=== PATIENT | male | born 1945 | race Caucasian/White ===

== ENCOUNTER 2019-12-13 11:02 | Inpatient (IN) | payer OTHER ==
[~2019-12-13] VITALS: Ht 180.3 cm; Wt 78.9 kg
[2019-12-13 11:03] VITALS: BP 124/85
--- NOTE | 2019-12-13 12:45 | NUR ---
ROX[facility] [phone] CELL [phone] HOME
[2019-12-13 13:26] LABS: ABSOLUTE NEUTROPHILS 4.4 thou/uL (1.4-8.2); HEMOGLOBIN 14.4 gm/dL (14.0-18.0); LYMPHOCYTES 22.6 % (24.0-44.0); MCH 30.9 pg (26.0-34.0); MCHC 33.5 g/dL (28.0-37.0); MCV 92.3 fL (80.0-100.0); MONOCYTES 5.9 % (1.0-8.0); PLATELET COUNT 257 thou/uL (150-400); POLYS 70.5 % (36.0-66.0); RBC 4.66 mil/uL (4.50-6.00); RDW 14.4 % (10.5-14.5); WBC 6.3 thou/uL (4.0-11.0)
[2019-12-13 13:39] LABS: ANION GAP 8 mmol/L (7-16); BUN 14 mg/dL (7-18); CALCIUM 8.2 mg/dL (8.5-10.1); CHLORIDE 99 mmol/L (98-107); CO2 28 mmol/L (21-32); CREATININE 0.9 mg/dL (0.7-1.3); GLUCOSE 100 mg/dL (74-106); POTASSIUM 3.4 mmol/L (3.5-5.1); SODIUM 135 mmol/L (136-145)
[2019-12-13 13:49] LABS: SGOT 54 U/L (15-37); SGPT 53 U/L (30-65); TOTAL BILIRUBIN 0.5 mg/dL (<0.1-1.0); TOTAL PROTEIN 7.2 g/dL (6.4-8.2); TROPONIN-I <0.06 ng/mL (<0.06)
[2019-12-13] MEDS ORDERED: NORVASC 2.5 MG2.5 M1 PO (14:03)
[2019-12-13 16:06] LABS: URINE BILIRUBIN NEGATIVE (Negative); URINE BLOOD NEGATIVE (Negative); URINE CLARITY CLEAR; URINE COLOR YELLOW; URINE GLUCOSE-RANDOM* NEGATIVE (Negative); URINE KETONES 1+ (Negative); URINE LEUKOCYTES-REFLEX NEGATIVE (Negative); URINE NITRITE-REFLEX NEGATIVE (Negative); URINE PROTEIN (DIPSTICK) 1+ (Negative); URINE SPECIFIC GRAVITY 1.025 (1.005-1.035)
[2019-12-13 16:12] VITALS: BP 123/70
[2019-12-13 16:39] VITALS: BP 126/69
[2019-12-13 16:46] LABS: BACTERIA-REFLEX 1-9 Few /HPF (None Seen); CASTS None Seen /LPF (None Seen); CRYSTALS None Seen /LPF (None Seen); SQUAMOUS None Seen /LPF (0-3); URINE RBC None Seen /HPF (0-2); URINE WBC-REFLEX 0-5 Rare /HPF (0-5)
[2019-12-13 18:00] VITALS: BP 148/87
--- NOTE | 2019-12-13 19:39 | NUR ---
PT ADMITTED FROM ER FOR WEAKNESS, FEVER ,AND LOSS OF APPETITE, PT IS A&OX3, PT IS CONTINUING NS @ 125ML/HR, PT HAS TYELON 650MG PO FOR FEVER 101F (AX) AT 1830PM, PT IS ON O2 2L/MIN/NC, PT DEIES SOB AND PAIN AT THIS TIME, PT IS ON ISOLATION FOR R/O COVID. RN HAS REPORTED TO NEXT SHIFT TO KEEP EYE ON PT.
[2019-12-13 19:55] VITALS: BP 125/72
[2019-12-13 23:59] VITALS: BP 150/86
[2019-12-14] VITALS (9 sets, daily range): BP systolic 142–161; BP diastolic 78–90
--- NOTE | 2019-12-14 04:49 | NUR ---
ASSUMED CARE OF PT AT 1900HRS. PT IS AOX4 AND LETS NEEDS BE KNOWN. FALL PRECAUTION IN PLACE. PT IS A STANDBY ASSIST WITH A STEADY GAIT. PT HAD 2X LOOSE BM THIS SHIFT. 2L O2 VIA NC CONTINUED. PT EXPERIENCES SOA WITH ACTIVITY. PT TRANSFERRED TO NEGATIVE PRESSURE ROOM AND ISOLATION CONTINUED PENDING COVID-19 TEST RESULTS. PT REPORTED GENERAL ACHE. PT DID NOT SLEEP WELL THIS SHIFT. PT HAD A TEMP BUT OTHER VSS. WILL CONTINUE TO MONITOR.
[2019-12-14 05:04] LABS: ABSOLUTE NEUTROPHILS 5.5 thou/uL (1.4-8.2); BASOPHILS 0.7 % (0.0-2.0); EOSINOPHILS 0.1 % (0.0-3.0); HEMOGLOBIN 14.1 gm/dL (14.0-18.0); LYMPHOCYTES 26.3 % (24.0-44.0); MCH 31.2 pg (26.0-34.0); MCHC 32.9 g/dL (28.0-37.0); MCV 94.7 fL (80.0-100.0); PLATELET COUNT 282 thou/uL (150-400); POLYS 67.9 % (36.0-66.0); RBC 4.54 mil/uL (4.50-6.00); RDW 14.5 % (10.5-14.5)
[2019-12-14 05:12] LABS: CALCIUM 7.6 mg/dL (8.5-10.1); CREATININE 0.9 mg/dL (0.7-1.3); MAGNESIUM 2.2 mg/dL (1.8-2.4)
--- NOTE | 2019-12-14 14:39 | NUR ---
assessment: CM REVIEWED CHART AND SPOKE WITH PATIENT. PT IS ALERT AND ORIENTED X4. PT WAS ADMITTED WITH WEAKNESS/FEVER. PT IS BEING TESTED FOR DAVIS VIRUS AND RESULTS ARE STILL PENDING AND PT IS IN ISOLATION. PT REPORTS HE HAS NOT TRAVELED ANYWHERE RECENTLY. PT REPORTS HE LIVES IN A HOUSE WITH HIS . PT REPORTS ABOUT 2 STEPS WITH NO HANDRAILS TO ENTER THE HOME AND ABOUT 10 STEPS WITH HANDRAILS TO HIS BEDROOM. PT REPORTS BEING FULLY INDEPENDENT WITH ADLS AND AMBULATION. PT REPORTS HAVING A GRAB BAR IN THE SHOWER. PT STATES HE HAS HAD OUTPT THERAPY IN THE PAST FOR HIS SHOULDER BUT UNSURE WHERE. PT DENIES HAVING OXYGEN AT HOME AND IS CURRENTLY ON 2-4L. CM WILL CONTINUE TO FOLLOW TO ASSIST NEEDED.
[2019-12-14 19:03] LABS: BE(vivo) -2.4 mmol/L (-2 to +3); HCO3 21.2 mmol/L (22.0-26.0); PCO2 33.3 mmHg (35.0-45.0); PO2 59.6 mmHg (80.0-100.0); pH 7.421 (7.360-7.450); sO2 91.6 % (92.0-98.0)
--- NOTE | 2019-12-14 19:50 | NUR ---
ASSUMMED PT CARE AT APPROXIMATELY 0700. PT A&O X4. ASSESSMENT CHARTED. FALL PRECAUTIONS IN PLACE. PT DENIES HAVING CHEST PAIN. PT DOES HAVE SOB. PT IS TACHYPNIC. PT INCREASINGLY NEEDING MORE O2 TO KEEP O2 AT LEAST 90%. PT STARTED DAY ON 2L NC. PT ENDING SHIFT ON 6L NC. INFORMED DR. DELAROSA OF PT NEEDING INCREASINGLY MORE O2. DR. DELAROSA ORDERED TRANSFER TO ICU, ABG, AND CHEST XRAY. ORDERS IMPLEMENTED. UPDATED DR. DELAROSA ON ABG AND CHEST XRAY RESULTS. DR. DELAROSA STATED TO INFORM ICU TO PREPARE FOR INTUBATION ONCE THERE AND TO PLACE PT ON A VENTI-MASK. INFORMED BULL DRIVER OF DR. DELAROSA'S ORDERED. RN STATED UNDERSTANDING AND DENIED HAVING FURTHER CONCERNS. VITAL SIGNS STABLE. O2 SATS STABLE ON 6L. PT STATED HE HAD NAUSEA. PT RECIEVED ANTI-EMETICS. PT STATED ANTI-EMETICS RELIEVED NAUSEA. PT HAD FEVER MID-DAY. PT RECIEVED TYLENOL. PT AFEBRILE. PT HAS POOR APPETITIE. CONSULTED COMMERCIAL ACCOUNT EXECUTIVE. ADDED SUPPLEMENTS. ENCOURAGED PT TO EAT AND DRINK FLUIDS. EDUCATED PT AND PT'S OF POC. PT AND PT'S STATED UNDERSTANDING AND DENIED HAVING FURTHER CONCERNS. PT COMFORTABLE IN BED. PT DENIES HAVING FURTHER CONCERNS.
--- NOTE | 2019-12-14 20:15 | NUR ---
PT REQUESTED BE CALLED. DOMINIC CONTACTED UPDATED ON VS AND PLAN TO TRANSFER TO ICU FOR VENTI MASK AND PLANNED INTUBATION. [phone].
--- NOTE | 2019-12-14 21:11 | NUR ---
PT RESTING IN BED TALKING WITH ON THE PHONE VIDEO CHAT. O2 PER NC 6L. NOT LABORED BREATHING WHEN TALKING. PT OFFERED FRESH WATER AND ACCEPTED. LUNGS DIMINISHED. NO COUGH OBSERVED. PT INFORMED OF PULMONARY DR DECISION TO TRANSFER TO ICU, THAT THE ROOM IS GOING TO START BEING CLEANED AT 2029. TEMP 98.5. NO C/O NAUSEA. PT VERBALIZED TO CALL FOR ASSISTANCE WITH TRANSFERS. BED ALARM ON. REMAINS ISOLATION COVID.
--- NOTE | 2019-12-14 23:08 | NUR ---
PT TRANSFERED TO ICU VIA TWO RN ESCORT. PT TRANSFERED WITH CARDIACT MONITOR AND PORTABLE OXYGEN ON 6L AND SURGICAL MASK ON FACE. PT TOLERATED THE TRANSFER WELL. PATIENT'S BELONGINGS PLACED IN A BAG X3 ALONG WITH (DENTURES/WATCH/CELLPHONE). PT SAFELY TRANSFERRED TO THE OTHER BED IN THE ICU AND CARED FOR BY THE ACCEPTING RN.
[2019-12-15] VITALS (77 sets, daily range): BP systolic 94–175; BP diastolic 53–109
--- NOTE | 2019-12-15 00:30 | NUR ---
PT ARRIVED IN ICU AT 2234. PT HAD SOME SOA WHEN TRANSFERRING FROM BED TO BED, BUT BREATHING SLOWED DOWN AND PT LOOKED MORE COMFORTABLE WITH SOME REST. PT ON 6L O2 HIGH FLOW CANNULA. DR. DELAROSA CALLED AND UPDATED ON PT'S STATUS. WILL CONTINUE TO MONITOR PT'S RESP STATUS.
[2019-12-15 04:06] LABS: BE(vivo) -0.8 mmol/L (-2 to +3); HCO3 23.7 mmol/L (22.0-26.0); PCO2 38.9 mmHg (35.0-45.0); PO2 71.2 mmHg (80.0-100.0); pH 7.402 (7.360-7.450); sO2 94.4 % (92.0-98.0)
--- NOTE | 2019-12-15 06:12 | NUR ---
PT INTUBATED AT APPROX. [address] DELAROSA D/T INCREASING RESP DISTRESS. PT GAVE CONSENT TO PROCEDURE; ATTEMPTED TO CONTACT , BUT THERE WAS NO ANSWER. PT TOLERATED THE PROCEDURE WELL. SHORTLY AFTER INTUBATION, PT BECAME VERY AGITATED AND WAS FIGHTING THE VENT. MAX DOSE ON PROPOFOL GTT WAS REACHED AND DR. DELAROSA CONTACTED FOR ADDITIONAL SEDATION. A ONETIME DOSE OF VERSED GIVEN. PT NOW CALM AND APPROPRIATELY SEDATED. WILL CONTINUE TO MONITOR.
[2019-12-15 06:15] LABS: HEMATOCRIT 41.1 % (42.0-52.0); HEMOGLOBIN 13.7 gm/dL (14.0-18.0); MCH 31.2 pg (26.0-34.0); MCHC 33.3 g/dL (28.0-37.0); MCV 93.6 fL (80.0-100.0); RBC 4.39 mil/uL (4.50-6.00); RDW 14.6 % (10.5-14.5); WBC 3.9 thou/uL (4.0-11.0)
[2019-12-15 06:24] LABS: CALCIUM 8.1 mg/dL (8.5-10.1); CREATININE 0.8 mg/dL (0.7-1.3); POTASSIUM 3.8 mmol/L (3.5-5.1)
--- NOTE | 2019-12-15 08:51 | NUR ---
Recommend start enteral nutrition within 48 hrs of intubation. Suggest vital high protein to start 25ml/hr. Will determine goal rate once propofol dosing stabilized.
--- NOTE | 2019-12-15 11:07 | NUR ---
discussed during los, pt cont on vent, + covid 19, was tested at [facility] [place]. no anticipated dc.
--- NOTE | 2019-12-15 15:42 | NUR ---
PT SEDATED- CALM ON VENTILATOR- TOLERATING SETTINGS-SPO2 >94% AND SEDATION. VITAL SIGNS STABLE, UPDATED PT (BABS) ON PLAN OF CARE. CONSENT GRANTED FOR PICC LINE AND LAB (COVID-19) RESULTS FROM [facility]. PHARMACY OKAY HYDROXYCHLOROQUINE TO BE CRUSHED AND PUT DOWN OG TUBE, WITH ADEQUATE WATER.
[2019-12-16] VITALS (51 sets, daily range): BP systolic 101–157; BP diastolic 53–86
--- NOTE | 2019-12-16 01:02 | NUR ---
RISK, BENEFITS, AND ALTERNATIVE TREATMENT DISCUSSED WITH FAMILY. TEACHING GIVEN RELATED TO POSSIBLE COMPLICATIONS SUCH BLEEDING, INFECTION, CLOT, OR VESSEL PERFORATION. INSTRUCTION GIVEN RELATED TO CLABSI PREVENTION WITH LITERATURE PROVIDED . FAMILY VOICES UNDERSTANDING TO THE ABOVE AND CONSENT OBTAINED. TRIPLE LUMEN POWER PICC PLACED TO RUE BASILIC VEIN. ONE STICK AND NO COMPLICATIONS. PATIENT TOLERATED WELL. CHEST XRAY COMPLETED WITH TIP OF PICC IN DISTAL SVC. PATIENT'S NURSE NOFIED OKAY TO USE PICC.
[2019-12-16 05:59] LABS: HEMATOCRIT 38.1 % (42.0-52.0); HEMOGLOBIN 12.8 gm/dL (14.0-18.0); MCH 31.8 pg (26.0-34.0); MCHC 33.6 g/dL (28.0-37.0); MCV 94.5 fL (80.0-100.0); RBC 4.03 mil/uL (4.50-6.00); RDW 14.8 % (10.5-14.5); WBC 6.9 thou/uL (4.0-11.0)
[2019-12-16 06:16] LABS: ALBUMIN 2.3 g/dL (3.4-5.0); CALCIUM 7.5 mg/dL (8.5-10.1); CREATININE 0.7 mg/dL (0.7-1.3); PHOSPHORUS 2.3 mg/dL (2.5-4.9)
--- NOTE | 2019-12-16 12:05 | NUR ---
chart review. discussed during los, pt remains on vent.
[2019-12-16 19:37] LABS: BE(vivo) -0.3 mmol/L (-2 to +3); HCO3 22.4 mmol/L (22.0-26.0); PCO2 31.4 mmHg (35.0-45.0); PO2 90.6 mmHg (80.0-100.0); pH 7.472 (7.360-7.450); sO2 97.5 % (92.0-98.0)
--- NOTE | 2019-12-16 19:56 | NUR ---
NURSE TALKED WITH PATIENTS TODAY MULTIPLE TIMES FOR AN UPDATE. NURSE ASKED PRIMARY CARE PHYSICIAN TO CONTACT HER IN REGARDS, FROM A MEDICAL STANDPOINT, HER UPDATE. THIS EVENING, NURSE DID INFORM HER OF PATIENTS TEMPERATURE. SHE REPEATED IT BACK TO ME, THEN ASKED ABOUT VENTILATOR SETTINGS. NURSE CONTACTED HOSPITALIST TO CALL HER AND UPDATE HER. NURSE PERFORMED SEPSIS SCREENIN AT 1836. IT WAS POSITIVE FOR SEPSIS. NURSE NOTIFIED DR. DELAROSA OF THIS FINDING, IN ADDITION TO PATIENTS INCREASING TEMP, VALUE WAS PROVIDED TO HIM. HE ORDERED SEPSIS PROTOCOL. THIS WAS PLACED IN ORDER AT SHIFT CHANGE. REPORT GIVEN TO ADJUNCT INSTRUCTOR OF WOMEN'S STUDIES RN FOR CONTINUATION OF CARE. NO BOWEL MOVEMENT THIS SHIFT. MINIMAL RESIDUALS TODAY WITH TUBE FEEDINGS <35 ML EACH CHECK. WITH PATIENT TEMP, CURTAINS WERE CLOSE, SUN WAS SHINING THROUGH THE WINDOW. ROOM WAS COOLED OFF. A COOL RAG WAS PLACED ON HIS FOREHEAD, AND LIGHTS WERE TURNED DOWN. PATIENT REMAINS ON VENTILATOR WITH PEEP NOW AT 6, DR. DELAROSA WAS SLOWLY INCREASING IT THIS AFTERNOON, HOWEVER WITH INCREASING TEMP, HEART RATE, BLOOD PRESSURE, DR. DELAROSA EXPRESSED TO DROP BACK DOWN TO 6. PATIENT NOT PROGRESSING TOWARDS PLAN OF CARE EVIDENCED BY NEW FEBRILE STATE. SEPSIS PROTOCOL ACTIVE.
[2019-12-16 21:16] LABS: CALCIUM 7.8 mg/dL (8.5-10.1); CREATININE 0.7 mg/dL (0.7-1.3); POTASSIUM 3.5 mmol/L (3.5-5.1)
[2019-12-16 21:31] LABS: ALBUMIN 2.4 g/dL (3.4-5.0); TOTAL BILIRUBIN 0.3 mg/dL (<0.1-1.0); TOTAL PROTEIN 6.2 g/dL (6.4-8.2)
[2019-12-16 21:40] LABS: WBC 10.3 thou/uL (4.0-11.0)
[2019-12-16 21:42] LABS: ABSOLUTE NEUTROPHILS 7.8 thou/uL (1.4-8.2); BASOPHILS 0.1 % (0.0-2.0); EOSINOPHILS 0.1 % (0.0-3.0); HEMOGLOBIN 13.4 gm/dL (14.0-18.0); LYMPHOCYTES 16.4 % (24.0-44.0); MCHC 33.3 g/dL (28.0-37.0); MONOCYTES 7.8 % (1.0-8.0); PLATELET COUNT 300 thou/uL (150-400); POLYS 75.6 % (36.0-66.0); RBC 4.31 mil/uL (4.50-6.00); RDW 14.9 % (10.5-14.5)
[2019-12-16 21:53] LABS: APTT 26.3 Seconds (24.5-32.8); FIBRINOGEN 409.8 mg/dL (210-360); PROTIME 10.3 Seconds (9.3-11.4)
[2019-12-16 23:50] LABS: URINE BILIRUBIN NEGATIVE (Negative); URINE BLOOD 2+ (Negative); URINE CLARITY CLEAR; URINE COLOR YELLOW; URINE GLUCOSE-RANDOM* NEGATIVE (Negative); URINE KETONES NEGATIVE (Negative); URINE LEUKOCYTES-REFLEX NEGATIVE (Negative); URINE NITRITE-REFLEX NEGATIVE (Negative); URINE PROTEIN (DIPSTICK) NEGATIVE (Negative)
[2019-12-17] VITALS (95 sets, daily range): BP systolic 103–151; BP diastolic 56–88
[2019-12-17 00:29] LABS: CASTS None Seen /LPF (None Seen); MUCUS None Seen strn/LPF (None Seen); SQUAMOUS None Seen /LPF (0-3); URINE WBC-REFLEX None Seen /HPF (0-5)
[2019-12-17 00:37] LABS: BACTERIA-REFLEX None Seen /HPF (None Seen); CRYSTALS None Seen /LPF (None Seen); URINE RBC 0-2 Rare /HPF (0-2)
[2019-12-17 02:15] LABS: CALCIUM 7.3 mg/dL (8.5-10.1); CREATININE 0.7 mg/dL (0.7-1.3); POTASSIUM 3.6 mmol/L (3.5-5.1)
[2019-12-17 02:25] LABS: TROPONIN-I <0.06 ng/mL (<0.06)
--- NOTE | 2019-12-17 03:31 | NUR ---
ASSUMED CARE OF PT AT 1900. SEPSIS ORDERS INITIATED PER DR DELAROSA. SPOKE TO DR ESCALANTE AT 2250 REGARDING ID CONSULT. ORDERS INITIATED PER ID. SPOKE TO REGARDING PT'S CURRENT STATUS AND POC. PT'S SEDATION TITRATED UP DUE TO PT COUGHING AND COMING OFF ETT. WILL CONTINUE TO MONITOR.
[2019-12-17 04:31] LABS: CALCIUM 7.7 mg/dL (8.5-10.1); CREATININE 0.7 mg/dL (0.7-1.3); POTASSIUM 3.6 mmol/L (3.5-5.1)
[2019-12-17 04:43] LABS: ABSOLUTE NEUTROPHILS 7.7 thou/uL (1.4-8.2); BASOPHILS 0.7 % (0.0-2.0); EOSINOPHILS 0.2 % (0.0-3.0); HEMATOCRIT 38.4 % (42.0-52.0); HEMOGLOBIN 12.8 gm/dL (14.0-18.0); LYMPHOCYTES 24.1 % (24.0-44.0); MCH 31.2 pg (26.0-34.0); MCHC 33.2 g/dL (28.0-37.0); MCV 93.8 fL (80.0-100.0); PLATELET COUNT 271 thou/uL (150-400); RBC 4.09 mil/uL (4.50-6.00); RDW 14.6 % (10.5-14.5)
[2019-12-17 05:50] LABS: BE(vivo) 1.7 mmol/L (-2 to +3); HCO3 25.2 mmol/L (22.0-26.0); PCO2 36.2 mmHg (35.0-45.0); pH 7.461 (7.360-7.450)
[2019-12-17 05:51] LABS: sO2 93.9 % (92.0-98.0)
[2019-12-17 09:14] LABS: CALCIUM 7.8 mg/dL (8.5-10.1); CREATININE 0.8 mg/dL (0.7-1.3)
[2019-12-17 12:07] LABS: HEMOGLOBIN 12.5 g/dL (13.0-17.7)
--- NOTE | 2019-12-17 17:38 | NUR ---
ASSUMED CARE AT 0700, ASSESSMENT AND VITAL SIGNS COMPLETED PER ICU PROTOCOL. DR. ANG ROUNDED IN AM, NO NEW ORDERS. DR. DELAROSA ROUNED THIS AM, NEW ORDERS RECEIVED AND EXECUTED.
[2019-12-18] VITALS (43 sets, daily range): BP systolic 98–146; BP diastolic 52–95
--- NOTE | 2019-12-18 03:51 | NUR ---
ASSUMED CARE OF PATIENT AT 1900. TEMPERATURE INCREASING, CONTINUOUS PROBE PLACED FOR CLOSER MONITORING. TYLENOL GIVEN, ICE PACKS, TEMP TRANDING TOWARDS NORMAL. TITRATED PROPOFOL, FENTYNAL AND VERSED PER ORDERS. TRACH TUBING POPS OFF OFTEN, DESATS. RT REPLACED A PART, WATCHING CLOSELY. O2 SATS REMAIN IN LOW 90'S DESPITE TITRATING FIO2 UP. NOT PROGRESSING TOWARDS POC GOALS.
--- NOTE | 2019-12-18 04:33 | NUR ---
Care assumed at 0430. Pt on FiO2 80%, sat only 91%, "riding vent" at 20 breaths per minute. Monitor sinus rhythm, CVP 9-10, MAP in 80's.
[2019-12-18 04:41] LABS: CREATININE 0.7 mg/dL (0.7-1.3); POTASSIUM 3.4 mmol/L (3.5-5.1)
[2019-12-18 04:43] LABS: ABSOLUTE NEUTROPHILS 10.5 thou/uL (1.4-8.2); BASOPHILS 0.6 % (0.0-2.0); EOSINOPHILS 0.6 % (0.0-3.0); HEMATOCRIT 37.1 % (42.0-52.0); HEMOGLOBIN 12.4 gm/dL (14.0-18.0); LYMPHOCYTES 11.9 % (24.0-44.0); MCH 31.4 pg (26.0-34.0); MCHC 33.4 g/dL (28.0-37.0); MCV 94.1 fL (80.0-100.0); MONOCYTES 3.8 % (1.0-8.0); PLATELET COUNT 236 thou/uL (150-400); POLYS 83.1 % (36.0-66.0); RBC 3.94 mil/uL (4.50-6.00); RDW 14.9 % (10.5-14.5); WBC 12.6 thou/uL (4.0-11.0)
--- NOTE | 2019-12-18 05:23 | NUR ---
At 0500 pt dropped sat down to 86%. FiO2 was at 80%; pt suctioned both orally and via ETT with moderate amount of medium cloudy sputum obtained. Sat still in 80's so FiO2 increased to 100%. O2 sat only came up to 90%. Dr. Gardner called at 0515 and updated on pt status. Peep increased from 7 to 9 per physician orders. Sat now 95% with FiO2 still at 100%.
--- NOTE | 2019-12-18 05:51 | NUR ---
notified of change in pt status.
--- NOTE | 2019-12-18 14:03 | NUR ---
Assumed care at 0700. PT is not progressing towards goals. Vent settings had to be increased: AC of 20, Peep of 12, TV of 500, and FIO2 of 100%. RN spoke with Dr. Gardner via telephone and updated him of PT's respiratory status. He verbalized understanding and stated he would contact PT's . Dr. Gardner called RN again and stated PT is now a DNR. Dr. Gardner mentioned that he discussed comfort care with who does not want to pursue that option unless PT declines further or appears to be distressed. RN verbalized understanding. Will continue to monitor.
[2019-12-18 18:10] LABS: MAGNESIUM 2.1 mg/dL (1.8-2.4)
[2019-12-18 18:11] LABS: POTASSIUM 3.5 mmol/L (3.5-5.1)
--- NOTE | 2019-12-18 18:22 | NUR ---
RN used PT's phone while in room to facetime with Kelly, PT's , at her request. spoke with PT while phone was propped up on the bedside table. RN also updated Kelly on PT condition during this time. She verbalized understanding and continued to speak to the PT. RN will continue to monitor.
[2019-12-18 18:28] LABS: CALCIUM 7.1 mg/dL (8.5-10.1); CREATININE 0.9 mg/dL (0.7-1.3)
[2019-12-19] VITALS (48 sets, daily range): BP systolic 89–141; BP diastolic 48–75
--- NOTE | 2019-12-19 06:00 | NUR ---
REMAINS INTUBATED AND SEDATED WITH PROPOFOL AND VERSED GT 800 CC UO THIS SHIFT. SINUS RHYTHM. AFEBRILE PT IS A DNR, WILL CONT TO MONITOR CLOSELY.
[2019-12-19 06:18] LABS: HEMATOCRIT 33.5 % (42.0-52.0); HEMOGLOBIN 11.1 gm/dL (14.0-18.0); MCH 31.2 pg (26.0-34.0); MCHC 33.1 g/dL (28.0-37.0); MCV 94.4 fL (80.0-100.0); RBC 3.55 mil/uL (4.50-6.00); WBC 14.8 thou/uL (4.0-11.0)
[2019-12-19 06:25] LABS: CALCIUM 7.3 mg/dL (8.5-10.1); POTASSIUM 3.5 mmol/L (3.5-5.1)
--- NOTE | 2019-12-19 10:12 | NUR ---
Nutrition: REC change tube feeding formula to Vital HP at goal rate 70 mL/hr to best meet needs with propofol requirement. Also suggest increase water flushes to 200 mL q 4 hrs.
--- NOTE | 2019-12-19 11:22 | NUR ---
discussed during los, no anticipated dc, pt remains on vent. echo and iv lasix.
--- NOTE | 2019-12-19 13:56 | 2DMMODE ---
[facility] [place] [address] 2 D/M-MODE ECHOCARDIOGRAM Name: FRANK KINNEY Room #: 237-P ADM IN M.R.#: [id number] Admission: 12/13/19 Attend Phys: Cesar Monterroso MD Discharge: Date of : 47 Report #: [id number] THIS REPORT FOR: cc: FAM - No family physician/PCP FAM - No family physician/PCP Timur Chavez MD ~ APPROVED REPORT Study performed: 12/19/2019 13:21:25 EXAM: Limited 2D, Doppler, and color-flow Echocardiogram Patient Location: ICU Room #: 237 Status: routine BSA: 1.93 HR: 118 bpm BP: 137/75 mmHg Rhythm: Tachycardia Other Information Study Quality: Technically Limited Technically limited study due to inability to position patient, lung disease, patient on ventilator. Indications Respiratory failure 2D Dimensions IVSd: 9.02 (7-11mm) LVDd: 49.30 mm PWd: 9.25 (7-11mm) LVDs: 34.37 (25-40mm) IVC: 26.00 mm Pulmonary Valve PV Peak Grady.: 1.11 m/s PV Peak Gr.: 4.89 mmHg Tricuspid Valve TR Peak Grady.: 3.44 m/s RAP Estimate: 10.00 mmHg TR Peak Gr.: 47.32 mmHg PA Pressure: 57.00 mmHg Left Ventricle The left ventricle is normal size. There is normal left ventricular wall thickness. The left ventricular systolic function is normal. [facility] [address] [place] [address] 2 D/M-MODE ECHOCARDIOGRAM Name: FRANK KINNEY Room #: 237-P ADM IN M.R.#: [id number] Admission: 12/13/19 Attend Phys: Cesar Monterroso MD Discharge: Date of : 47 Report #: [id number] left ventricular ejection fraction is within the normal range. LVEF is 60-65%. Right Ventricle The right ventricle is normal size. The right ventricular systolic function is normal. Aortic Valve The aortic valve is normal in structure. No aortic regurgitation is present. There is no aortic valvular stenosis. Mitral Valve The mitral valve is normal in structure. There is no mitral valve regurgitation noted. Tricuspid Valve The tricuspid valve is normal in structure. Mild tricuspid regurgitation. PAP is estimated at 57 mmHg. Pulmonic Valve The pulmonary valve is normal in structure. There is no pulmonic valvular regurgitation. Great Vessels IVC is dilated at 2.6 cm. Pericardium There is no pericardial effusion. <Conclusion> The left ventricle is normal size. LVEF is 60-65%. The aortic valve is normal in structure. The mitral valve is normal in structure. The tricuspid valve is normal in structure. Mild tricuspid regurgitation. PAP is estimated at 57 mmHg. The pulmonary valve is normal in structure. IVC is dilated at 2.6 cm. There is no pericardial effusion. <ELECTRONICALLY SIGNED> By: Timur Chavez MD 12/19/19 1355 [id number] Timur Chavez MD /INF
--- NOTE | 2019-12-19 17:22 | NUR ---
PT INTUBATED AND SEDATED. ASSESSMENTS DOCUMENTED. FENTYNL/PROPOFOL/VERSED GTT FOR VENT AND SEDATION MANGEMENT. DIFFICULT TIME KEEPING PT'S 02 SATURATIONS ABOUT 90%. MD NOTIFIED AND VENT SETTING CHANGED BY RT. LIMITED ECCO DONE AT BEDSIDE. PT TEMPERATURE REACHED A HIGH OF 38.2 DURING DAY SHIFT. PT AND FAMILY UPDATED AND EDUCATED OF PLAN OF CARE. NO SEDATION VACATION PERFORMED TODAY PER PROVIDER ORDER. TUBE FEED IN PLACE AND AT GOAL. ADEQUATE URINE OUTPUT THROUGHOUT SHIFT. PT NOT PROGRESSING TOWARDS PLAN OF CARE. WILL CONTINUE TO MONITOR.
[2019-12-20] VITALS (43 sets, daily range): BP systolic 105–131; BP diastolic 56–72
[2019-12-20 05:20] LABS: ABSOLUTE NEUTROPHILS 11.9 thou/uL (1.4-8.2); BASOPHILS 0.5 % (0.0-2.0); EOSINOPHILS 0.1 % (0.0-3.0); HEMATOCRIT 33.3 % (42.0-52.0); LYMPHOCYTES 6.9 % (24.0-44.0); MCH 31.2 pg (26.0-34.0); MCHC 32.9 g/dL (28.0-37.0); MCV 94.9 fL (80.0-100.0); MONOCYTES 4.1 % (1.0-8.0); PLATELET COUNT 240 thou/uL (150-400); POLYS 88.4 % (36.0-66.0); RBC 3.51 mil/uL (4.50-6.00); RDW 15.1 % (10.5-14.5); WBC 13.5 thou/uL (4.0-11.0)
[2019-12-20 05:37] LABS: ALBUMIN 1.5 g/dL (3.4-5.0); CALCIUM 7.4 mg/dL (8.5-10.1); CREATININE 0.9 mg/dL (0.7-1.3); POTASSIUM 4.1 mmol/L (3.5-5.1); TOTAL PROTEIN 6.1 g/dL (6.4-8.2)
[2019-12-20 05:48] LABS: BE(vivo) 3.3 mmol/L (-2 to +3); HCO3 31.7 mmol/L (22.0-26.0); PCO2 68.1 mmHg (35.0-45.0); PO2 70.5 mmHg (80.0-100.0); pH 7.286 (7.360-7.450); sO2 91.6 % (92.0-98.0)
--- NOTE | 2019-12-20 15:45 | NUR ---
ASSUMED CARE AT 0700, ASSESSMENT AND VITAL SIGNS COMPLETED PER ICU PROTOCOL. DR. ANG ROUNDED THIS AM, NEW ORDERS RECEIVED AND EXECUTED. DR. ESCALANTE ROUNDED THIS AM, NO NEW ORDERS RECEIVED.
[2019-12-21] VITALS (36 sets, daily range): BP systolic 126–174; BP diastolic 64–97
--- NOTE | 2019-12-21 04:46 | NUR ---
NO CHANGES OVERNIGHT. PT REMAINS ON VENT WITH NO CHANGE IN SETTINGS, STILL AT 100% FIO2. ON PROPOFOL, VERSED, AND FENTANYL GTTS FOR SEDATION/VENT MANAGEMENT. TUBE FEEDING RUNNING, BUT AT SLOW RATE-NOT AT GOAL. PT CONTINUES TO HAVE HIGH RESIDUALS, CONSIDERING THE RATE OF THE TUBE FEEDING. PT WAS INITIALLY HYPOTHERMIC. NOW PT'S TEMP IS READING 97.8 AXILLARY AND PT IS WARM TO TOUCH. PT IS NOT PROGRESSING TOWARDS GOALS. WILL CONTINUE TO MONITOR.
[2019-12-21 05:27] LABS: BE(vivo) 2.1 mmol/L (-2 to +3); HCO3 26.9 mmol/L (22.0-26.0); PCO2 42.5 mmHg (35.0-45.0); PO2 136.9 mmHg (80.0-100.0); pH 7.419 (7.360-7.450); sO2 98.8 % (92.0-98.0)
[2019-12-21 06:34] LABS: ABSOLUTE NEUTROPHILS 11.2 thou/uL (1.4-8.2); BASOPHILS 0.1 % (0.0-2.0); HEMATOCRIT 30.8 % (42.0-52.0); HEMOGLOBIN 10.2 gm/dL (14.0-18.0); MCH 31.2 pg (26.0-34.0); MCV 94.5 fL (80.0-100.0); MONOCYTES 7.1 % (1.0-8.0); PLATELET COUNT 294 thou/uL (150-400); POLYS 85.8 % (36.0-66.0); RBC 3.26 mil/uL (4.50-6.00)
[2019-12-21 06:44] LABS: ALBUMIN 1.9 g/dL (3.4-5.0); CALCIUM 7.9 mg/dL (8.5-10.1); CREATININE 1.1 mg/dL (0.7-1.3); POTASSIUM 3.9 mmol/L (3.5-5.1); TOTAL BILIRUBIN 0.5 mg/dL (<0.1-1.0); TOTAL PROTEIN 6.3 g/dL (6.4-8.2)
[2019-12-21 07:39] LABS: BE(vivo) 1.6 mmol/L (-2 to +3); HCO3 25.2 mmol/L (22.0-26.0); PCO2 36.2 mmHg (35.0-45.0)
[2019-12-21 07:50] LABS: PO2 44.2 mmHg (80.0-100.0)
[2019-12-21 19:07] LABS: ADENOVIRUS Negative (Negative); INFLUENZA A Negative (Negative); INFLUENZA B Negative (Negative); METAPNEUMOVIRUS Negative (Negative); PARAINFLUENZA 1 Negative (Negative); PARAINFLUENZA 2 Negative (Negative); PARAINFLUENZA 3 Negative (Negative); RHINOVIRUS Negative (Negative); RSV A Negative (Negative); RSV B Negative (Negative)
--- NOTE | 2019-12-21 21:52 | NUR ---
pt's and his son called for an updates tonight.
[2019-12-22] VITALS (30 sets, daily range): BP systolic 134–173; BP diastolic 65–92
[2019-12-22 05:46] LABS: CREATININE 1.2 mg/dL (0.7-1.3); POTASSIUM 3.3 mmol/L (3.5-5.1)
--- NOTE | 2019-12-22 06:10 | NUR ---
No event tonight. Pt remains on vent with PEEP 12. He is continue to be heavily sedated. Not tolerate for sedation to come down, noted to be tachypnic and using auxillary muscle. Maintain O2 > 95% with current FiO2. His lung is very dim t/o. Not much secretion via ETT with suctioning. Febrile last night, gave tylenol once with good result. Akbar TF well, still no BP. BP stable. Continue to monitor him closely.
[2019-12-22 09:11] LABS: BE(vivo) 6.8 mmol/L (-2 to +3); HCO3 30.5 mmol/L (22.0-26.0); PCO2 40.1 mmHg (35.0-45.0); PO2 77.1 mmHg (80.0-100.0); pH 7.499 (7.360-7.450); sO2 96.3 % (92.0-98.0)
--- NOTE | 2019-12-22 10:00 | NUR ---
ASSUMED CARE ON PATIENT THIS AM. SEDATED ON PROPOFOL, VERSED AND FENTANYL. WILL WITHDRAW TO PAIN, MONITOR NSR. VSS. CALLED IN AND UPDATED ON PATIENT'S STATUS AND POC.
--- NOTE | 2019-12-22 14:00 | NUR ---
ETT ADVANCED BY RT PER ORDER. PATIENT NOW POPPING OFF THE VENT AND QUICKLY DESATING INTO THE 50'S. ETT NOTED TO BE CUT OFF AND VERY LITTLE AREA TO HOLD IT ON. PROPOFOL INITIALLY INCREASED TO 40 MCG AND THEN VERSED INCREASED TO [address] DONATO NOTIFIED OF FINDINGS. NO ORDERS. WILL CONTINUE TO MONITOR.
--- NOTE | 2019-12-22 19:49 | NUR ---
PATIENT RESTING QUIETLY, AND 02 SAT STABLE UNTIL TREATMENT PLACED IN LINE AND THEN POPPING OFF VENT AND DESATING. PLACED BACK ON VENT AND TUBING SECURED AND SUCTIONED. SEDATION BEFORE. MONITOR NSR AT REST, ST WHEN POPPING OFF VENT, WITH A RESP RATE IN THE 40'S, QUICKLY RECOVERS ONCE ON VENT. TOLERATING TUBE FEEDINGS NOW AT GOAL RATE OF 45ML/HR. URINE OUTPUT GOOD. REPEAT POTASSIUM WITHIN PARAMATERS AFTER BOLUS THIS AM. REPORT GIVEN TO HILARIO GÓMEZ.
[2019-12-23] VITALS (25 sets, daily range): BP systolic 146–180; BP diastolic 68–89
[2019-12-23 05:27] LABS: MAGNESIUM 3.9 mg/dL (1.8-2.4); POTASSIUM 3.8 mmol/L (3.5-5.1)
[2019-12-23 05:36] LABS: HEMATOCRIT 28.7 % (42.0-52.0); HEMOGLOBIN 9.6 gm/dL (14.0-18.0); MCH 31.9 pg (26.0-34.0); MCHC 33.6 g/dL (28.0-37.0); MCV 94.9 fL (80.0-100.0); RBC 3.02 mil/uL (4.50-6.00); WBC 13.6 thou/uL (4.0-11.0)
--- NOTE | 2019-12-23 06:05 | NUR ---
Pt remains intubated, sedated and restrained, he doesn't follow commands, +gag/cough noted, with minimal spontaneous movement. Monitor reads SR, mild hypertension, CVP readings from 16-20 mmHg. Pt's PeeP was increased to 14, and his ETT was disconnecting from the vent through the night, RT was informed and currently, is maintaining a patent airway. He de-sats quickly when this happens, dropping into the 70's in very short order. His lungs are diminished, sats are currently 94%. He is tolerating his jevity, hypoactive bowel sounds, slightly firm/rounded ABD noted, he receives IV reglan with no recent BM noted. The hernandez is patent, draining clear yellow urine, he receives IV lasix with adequate diuresis noted. The bed is in the low/locked position, the siderails are x 4 , he is very slow progress towards his POC goals, will continue to monitor.
[2019-12-23 09:20] LABS: BE(vivo) 5.9 mmol/L (-2 to +3); HCO3 30.2 mmol/L (22.0-26.0); PO2 72.1 mmHg (80.0-100.0); pH 7.465 (7.360-7.450); sO2 95.3 % (92.0-98.0)
--- NOTE | 2019-12-23 09:35 | NUR ---
Nutrition: Tube feeds plus propofol meeting only 66% of protein needs. REC change formula to Vital HP to run at 65 mL/hr to meet ~100% of kcal and protein needs. Hypernatremia present but also with 1+ generalized edema. If able to tolerate additional fluid suggest increase water flushes to q 4 hrs.
--- NOTE | 2019-12-23 09:41 | NUR ---
he remains intubated, tube feedings for nutrition, noted in per chart no ready to wean yet. cm visited with govind via phone call, offered support and active listing during phone call, " just one thing, on of nurse did the face time with joshua phone so i could see him, talk to him, sing to him and pray with him. if not to busy please that would be nice. we only been 7 months and were going to close on a house, not sure what's going on now. thank you"/ govind. information passed on to bedside nurse and will cont following as needed for dc needs.
--- NOTE | 2019-12-23 18:54 | NUR ---
PRESSURE CONTROL DECREASED FROM 25 TO 20 THIS SHIFT. PEEP 14, FI02 70%. DOES NOT TOLERATED SEDATION VACATION. DOES NOT OPEN EYES OR FOLLOW COMMAND. ALL HARD SURFACES CLEANED AND DISENFECTED.
[2019-12-24] VITALS (30 sets, daily range): BP systolic 137–184; BP diastolic 71–99
[2019-12-24 05:10] LABS: BE(vivo) 6.2 mmol/L (-2 to +3); HCO3 31.9 mmol/L (22.0-26.0); PCO2 51.2 mmHg (35.0-45.0); PO2 73.9 mmHg (80.0-100.0); pH 7.412 (7.360-7.450); sO2 94.8 % (92.0-98.0)
[2019-12-24 05:41] LABS: ALBUMIN 3.5 g/dL (3.4-5.0); CALCIUM 6.7 mg/dL (8.5-10.1); CREATININE 0.7 mg/dL (0.7-1.3); MAGNESIUM 3.4 mg/dL (1.8-2.4); POTASSIUM 4.1 mmol/L (3.5-5.1); TOTAL BILIRUBIN 1.2 mg/dL (<0.1-1.0); TOTAL PROTEIN 6.3 g/dL (6.4-8.2)
[2019-12-24 05:57] LABS: HEMATOCRIT 27.9 % (42.0-52.0); HEMOGLOBIN 9.5 gm/dL (14.0-18.0); PLATELET COUNT 371 thou/uL (150-400); RBC 2.87 mil/uL (4.50-6.00); RDW 15.1 % (10.5-14.5); WBC 19.3 thou/uL (4.0-11.0)
[2019-12-24 10:23] LABS: ABSOLUTE NEUTROPHILS 17.6 thou/uL (1.4-8.2)
[2019-12-24 10:24] LABS: TARGET CELLS 2+
--- NOTE | 2019-12-24 23:47 | NUR ---
2030 - ATTEMPTED SEDATION VACATION DURING INITIAL ASSESSMENT. PT DID NOT RESPOND TO PAINFUL OR VERBAL STIMULI. BP DOES INCREASE WITHOUT SEDATION. POSITIVE COUGH AND GAG REFLEXES. WILL CONTINUE TO MONITOR.
[2019-12-25] VITALS (37 sets, daily range): BP systolic 134–201; BP diastolic 63–95
--- NOTE | 2019-12-25 02:19 | NUR ---
0100 - PT REMAINS SEDATED ON PROPOFOL GTT, VERSED GTT, AND FENTANYL GTT. HE DOES NOT RESPOND TO VERBAL OR PAINFUL STIMULI. DOES NOT WITHDRAW TO PAIN. HE DOES HAVE GOOD COUGH RELFEX WHEN STIMULATED BY SUCTIONING. TITRATED FENTANYL GTT DOWN TO 25MCG/HR TO SEE IF HE CAN TOLERATE THAT CHANGE AND TO MONITOR IF HE WILL RESPOND A LITTLE MORE TO STIMULI. REMAINS IN BILATERAL SOFT WRIST RESTRAINTS TO PREVENT HIM FROM PULLING AT ANY LINES SINCE IT WOULD TAKE A FEW MINUTES FOR RN TO ENTER ROOM DUE TO COVID-19 ISOLATION PRECAUTIONS. WILL CONTINUE TO MONITOR CLOSELY. NOT PROGRESSING WELL TOWARD POC GOALS.
[2019-12-25 04:09] LABS: BE(vivo) 3.6 mmol/L (-2 to +3); PO2 111.3 mmHg (80.0-100.0); pH 7.355 (7.360-7.450); sO2 97.8 % (92.0-98.0)
--- NOTE | 2019-12-25 05:32 | NUR ---
DR DONATO UPDATED ON PT CONDITION DURING THE NIGHT. DR DONATO WAS NOTIFIED THAT PT IS NOT RESPONDING TO VERBAL OR PAINFUL STIMULI, EXCEPT TO HAVE COUGH AND GAG RELFLEX. NO NEW ORDERS.
[2019-12-25 05:52] LABS: HEMATOCRIT 30.9 % (42.0-52.0); HEMOGLOBIN 9.8 gm/dL (14.0-18.0); MCHC 31.8 g/dL (28.0-37.0); MCV 97.4 fL (80.0-100.0); PLATELET COUNT 406 thou/uL (150-400); RBC 3.17 mil/uL (4.50-6.00); RDW 15.4 % (10.5-14.5); WBC 21.6 thou/uL (4.0-11.0)
[2019-12-25 06:06] LABS: ALBUMIN 4.4 g/dL (3.4-5.0); MAGNESIUM 4.2 mg/dL (1.8-2.4); TOTAL BILIRUBIN 0.9 mg/dL (<0.1-1.0); TOTAL PROTEIN 7.1 g/dL (6.4-8.2)
[2019-12-25 06:11] LABS: CALCIUM 8.8 mg/dL (8.5-10.1); POTASSIUM 5.7 mmol/L (3.5-5.1)
[2019-12-25 06:20] LABS: ABSOLUTE NEUTROPHILS 19.4 thou/uL (1.4-8.2); LARGE PLATELETS OCCASIONAL; MYELOCYTES 1 %
--- NOTE | 2019-12-25 11:32 | NUR ---
ON THE VENT AND SEDATED, FENTANYL GTT FOR PAIN MANAGEMENT. HTN AND DR. CORBETT IS AWARE AND INCREASED ANTIHYPERTENSIVES, OTHER VITALS STABLE. TOLERATING TUBEFEEDING PER OGT. ASSESSMENTS DOCUMENTED. WILL CONTINUE WITH POC.
--- NOTE | 2019-12-25 15:26 | NUR ---
SPOUSE HAD CALLED WHEN I WAS ON LUNCH BREAK, I CALLED HER BACK AND UPDATED HER OVER THE PHONE AND ANSWERED HER QNS.
[2019-12-26] VITALS (17 sets, daily range): BP systolic 134–194; BP diastolic 70–101
[2019-12-26 05:40] LABS: BE(vivo) 2.9 mmol/L (-2 to +3); HCO3 30.7 mmol/L (22.0-26.0); PO2 93.4 mmHg (80.0-100.0); sO2 96.1 % (92.0-98.0)
[2019-12-26 05:41] LABS: PCO2 65.4 mmHg (35.0-45.0); pH 7.289 (7.360-7.450)
[2019-12-26 06:15] LABS: HEMATOCRIT 29.7 % (42.0-52.0); HEMOGLOBIN 9.4 gm/dL (14.0-18.0); MCH 31.2 pg (26.0-34.0); MCHC 31.5 g/dL (28.0-37.0); MCV 98.9 fL (80.0-100.0); PLATELET COUNT 384 thou/uL (150-400); RDW 15.7 % (10.5-14.5)
[2019-12-26 06:37] LABS: ALBUMIN 4.4 g/dL (3.4-5.0); CALCIUM 8.5 mg/dL (8.5-10.1); MAGNESIUM 4.3 mg/dL (1.8-2.4); POTASSIUM 5.6 mmol/L (3.5-5.1)
[2019-12-26 08:09] LABS: ABSOLUTE NEUTROPHILS 19.8 thou/uL (1.4-8.2); PLATELET ESTIMATE NORMAL
--- NOTE | 2019-12-26 08:16 | NUR ---
SEE [employer] FOR ASSESSMENT. PT CONT TO BE TACYPNIC AND TACHYCARDIC, SEDATION OF VERSED, FENTANYL AND PROPOFOL CONTINUE. LS DIMINISHED-SUCTION THICK YELLOW SECRETIONS. CONT ON PC. NOT PROGRESSING TOWARD GOALS, CRITICAL ABG CALLED TO DR DONATO. ORDERS RECIEVED. ALSO NOTIFIED OF DISTENDED ABDOMEN, NO STOOLS. AM KUB PENDING. TF ON HOLD.
--- NOTE | 2019-12-26 08:30 | NUR ---
ASSUMED CARE OF PATIENT AT 0715. BICARB GIVEN PER ORDER, PATIENT ASSESSMENT COMPLETED, URINE OUTPUT GREATER THAN 100 ML/HR VIA PATENT BLACK. TUBE FEEDINGS ON HOLD DUE TO FECAL IMPACTION AND ELEVATED RESIDUALS. MONITOR ST VSS. SEDATED ON VERSED, FENTAYL AND PROPOFOL DRIPS. VENT SETTINGS UNCHANGED. WILL CONTINUE TO MONITOR,
--- NOTE | 2019-12-26 09:56 | NUR ---
Nutrition: Changing tube feeding formula per Dr Barcenas verbal order. RD ordering Nepro formula due to present hyperkalemia, hypermagnesemia. Nepro at 40 ML/hr plus beneprotein 1 packet in each water flush plus propofol kcals will meet ~100% of needs.
--- NOTE | 2019-12-26 10:19 | NUR ---
pt remains on vent, and has tube feeding. noted wbc elevated. will cont following as needed for dc needs.
--- NOTE | 2019-12-26 14:15 | NUR ---
SPOKE WITH HIS DOMINIC, UPDATED HER TO THE PROGRESS OF WORKING ON HIM HAVING A BOWEL MOVEMENT. MIRALAX AND STOOL SOFTNER GIVEN. CONTINUE TO MONITOR.
--- NOTE | 2019-12-26 19:00 | NUR ---
PATIENT NOT PROGRESSING TOWARD OUTCOME GOALS. BLACK PATENT, WATER BOLUSES GIVEN AND D5W INFUSING PER ORDER. DUCOLAX SUPP GIVEN WITH SMALL AMT OF YELLOW BROWN STOOL NOTED ON GLOVE. ALL DRIPS REMAIN THE SAME. WILL CONTINUE TO MONITOR.
--- NOTE | 2019-12-26 21:17 | NUR ---
ASSUMED PT CARE AT 1900. VSS. PT INTUBATED AND SEDATED ON PROPOFOL, FENTANYL AND VERSED GTT. SEDATION VACATION AT 2044; NO RESPONSE TO PAIN OR VERBAL STIMULI FOR 30 MINUTES. SEDATION TUNRED OFF FOR NOW. WILL CONTINUE TO CLOSELY MONITOR
[2019-12-27] VITALS (36 sets, daily range): BP systolic 141–196; BP diastolic 67–97
[2019-12-27 07:04] LABS: CALCIUM 8.5 mg/dL (8.5-10.1); CREATININE 0.9 mg/dL (0.7-1.3); POTASSIUM 5.9 mmol/L (3.5-5.1)
--- NOTE | 2019-12-27 11:13 | NUR ---
ASSUMED CARE OF PT AT 0700. PT INTUBATED AND SEDATED ON VERSED, PROPOFOL AND FENTANYL. SR ON TELE. WAYNE TO RAEGAN WILL CONTINUE TO MONITOR.
[2019-12-27 13:07] LABS: HCO3 34.5 mmol/L (22.0-26.0); PCO2 60.4 mmHg (35.0-45.0); pH 7.375 (7.360-7.450); sO2 94.4 % (92.0-98.0)
[2019-12-28] VITALS (47 sets, daily range): BP systolic 127–170; BP diastolic 62–86
[2019-12-28 04:11] LABS: HEMATOCRIT 29.7 % (42.0-52.0); HEMOGLOBIN 9.3 gm/dL (14.0-18.0); MCHC 31.3 g/dL (28.0-37.0); MCV 99.1 fL (80.0-100.0); RDW 15.2 % (10.5-14.5); WBC 23.5 thou/uL (4.0-11.0)
[2019-12-28 04:20] LABS: CALCIUM 9.3 mg/dL (8.5-10.1); POTASSIUM 5.6 mmol/L (3.5-5.1)
[2019-12-28 05:03] LABS: BE(vivo) 5.9 mmol/L (-2 to +3); HCO3 32.4 mmol/L (22.0-26.0); PCO2 58.2 mmHg (35.0-45.0); pH 7.364 (7.360-7.450); sO2 97.1 % (92.0-98.0)
--- NOTE | 2019-12-28 06:38 | NUR ---
ASSESSMENT DOCUMENTED.PT REMAINS SEDATED,ON PROPOFOL,VERSED AND FENTANYL DRIP.PT NOT RESPONSIVE TO PAINFUL STIMULI,DOES NOT FOLLOW COMMANDS AT ALL.VENT SETTINGS REMAINS UNCHANGED.HYDRALAZINE WAS GIVEN FOR HIGH BLOOD PRESSURE,SBP >170,BP,IN 140S AT THIS TIME.SR/STACHY ON MONITOR UPTO 120S BMP BUT NOT SUSTAINING.BLACK WITH LARGE AMOUNT OF URINE 1350CC.TUBE FEEDING ON HOLD.ABD DISTENDED WITH HYPOACTIVE BOWEL SOUNDS,PT HAD A SMEAR OF BOWEL MOVEMENT.LAXATIVES GIVEN PER ORDERS.ABT PER ORDERS. CALLED ADN UPDATED WITH POC/CARE.ABGS IMPROVED THIS AM.PT SEEMS TO PROGRESS TO POC SLOWLY.WILL COTNT TO MONITOR PER POC.
--- NOTE | 2019-12-28 16:36 | NUR ---
ASSESSMENTS AND INTERVENTIONS DOCCUMENTED. DR FIORE AT BEDSIDE, ORDERS RECIEVED FOR ENEMA. ELEVATED POTASSIUM LEVELS DISCUSSED, NO NEW ORDERS. DR DELAROSA, ROUNDING. ORDERS RECIEVED FOR POTASSIUM LEVELS. CALLING, SHE WAS UPDATED ABOUT POC. PATIENT IS NOT PROGRESSING TOWARDS GOALS AT THIS TIME. PATIENT STILL REQUIRING A LOT OF SEDATION AND OXYGEN.
[2019-12-29] VITALS (44 sets, daily range): BP systolic 128–172; BP diastolic 64–96
--- NOTE | 2019-12-29 01:59 | NUR ---
ASSUMED PT CARE AT 1900. VSS. PT INTUBATED AND SEDATED WITH PROPOFOL, VERSED AND FENTANYL DRIP. PT U/O WAS >30ML/HR. SEDATION VACATION; NON RESPONSIVE TO PAIN, POSITIVE COUGH AND GAG RELEX NOTED. PT HAD AN UNEVENTFUL NOC. PT IS NOT PROGRESING WELL TOWARDS POC GOALS. WILL CONTINUE TO CLOSELY MONITOR
[2019-12-29 06:12] LABS: HEMATOCRIT 27.9 % (42.0-52.0); MCH 31.9 pg (26.0-34.0); MCHC 32.3 g/dL (28.0-37.0); RBC 2.82 mil/uL (4.50-6.00); RDW 14.7 % (10.5-14.5)
[2019-12-29 06:13] LABS: CALCIUM 8.7 mg/dL (8.5-10.1); CREATININE 0.8 mg/dL (0.7-1.3); POTASSIUM 5.5 mmol/L (3.5-5.1)
--- NOTE | 2019-12-29 11:26 | NUR ---
discussed during los, he cont to need vent support, T.F for nutrition. possible will need a trach when negative for covid 19. will cont following as needed for dc needs.
--- NOTE | 2019-12-29 17:00 | NUR ---
ASSUMED CARE AT 0700, ASSESSMENT AND VITAL SIGNS COMPLETED PER ICU PROTOCOL. DR. ESCALANTE ROUNDED THIS AM, NO NEW ORDERS RECEIVED. DR. FIORE ROUNDED THIS MORNING, NEW ORDERS RECEIVED AND EXECUTED. DR. DELAROSA ROUNDED THIS AFTERNOON, NEW ORDERS RECEIVED AND EXECUTED.
--- NOTE | 2019-12-29 23:15 | NUR ---
pt placed from prone to supine during this time. vss. afebrile. on versed gt, fentanyl gtt and propofol gtt. one small bm during the night. will continue to monitor.
[2019-12-30] VITALS (23 sets, daily range): BP systolic 119–145; BP diastolic 59–73
[2019-12-30 05:07] LABS: BE(vivo) 3.3 mmol/L (-2 to +3); HCO3 33.9 mmol/L (22.0-26.0); PO2 336.6 mmHg (80.0-100.0); sO2 99.6 % (92.0-98.0)
[2019-12-30 05:08] LABS: PCO2 93.8 mmHg (35.0-45.0); pH 7.176 (7.360-7.450)
[2019-12-30 06:29] LABS: HEMATOCRIT 31.8 % (42.0-52.0); HEMOGLOBIN 9.9 gm/dL (14.0-18.0); MCH 31.6 pg (26.0-34.0); MCHC 31.1 g/dL (28.0-37.0); MCV 101.3 fL (80.0-100.0); RBC 3.14 mil/uL (4.50-6.00); RDW 15.4 % (10.5-14.5); WBC 24.8 thou/uL (4.0-11.0)
[2019-12-30 06:44] LABS: CALCIUM 8.5 mg/dL (8.5-10.1); CREATININE 0.7 mg/dL (0.7-1.3)
[2019-12-30 06:49] LABS: POTASSIUM 6.2 mmol/L (3.5-5.1)
--- NOTE | 2019-12-30 07:25 | NUR ---
SEDATION VACATION AT 0500 FOR APPROXATELY 15 MINS. PT NOT FOLLOW COMMANDS OR OPENING EYES. GAG AND CORNEAL REFLEX PRESENT. VSS. AFEBRILE. CRITICAL LAB VALUES COMMUNICATED TO VINH KINNEY AND DR. DELAROSA. INFORMED VINH KINNEY ABOUT PT NOT TOLERATING TUBE FEEDING. TUBE FEEDING CURRENTLY ON HOLD DUE TO HIGH RESIDUALS. ADEQUATE URINE OUTPUT. WILL CONTINUE TO MONITOR PT. NOT PROGRESSING TOWARDS GOALS.
--- NOTE | 2019-12-30 09:00 | NUR ---
PATIENT GIVEN K EXALATE, INSULIN AND D50 FOR ELEVATED POTASSIUM. TUBE FEEDINGS REMAIN ON HOLD FOR RESIDUAL OF 150 ML OF GREENISH BILE DRAINAGE. WILL CONTINUE TO MONITOR.
--- NOTE | 2019-12-30 10:30 | NUR ---
DOMINIC CALLED IN AND UPDATED TO HER 'S STATUS AT 0950. CALLED FROM THE ROOM AND CALLED HER ON HER 'S CELL PHONE FOR FACETIME CHAT WITH PATIENT
[2019-12-30 10:32] LABS: BE(vivo) 6.2 mmol/L (-2 to +3); HCO3 36.2 mmol/L (22.0-26.0); sO2 97.7 % (92.0-98.0)
[2019-12-30 10:35] LABS: PCO2 89.4 mmHg (35.0-45.0); pH 7.225 (7.360-7.450)
--- NOTE | 2019-12-30 11:56 | EKG ---
[facility] [place] [address] ELECTROCARDIOGRAM REPORT Name: FRANK KINNEY Room #: 237-P ADM IN M.R.#: [id number] Admission: 12/13/19 Attend Phys: Cesar Monterroso MD Discharge: Date of : 47 Report #: [id number] THIS REPORT FOR: cc: LAUREN Alvarez family physician/PCP LAUREN - Kim family physician/PCP Drew Ayala MD ~ THIS REPORT FOR: //name// [facility] ED Test Date: 2019-12-13 Test Time: 11:21:09 Pat Name: FRANK KINNEY Department: Room: Gender: Advertising Sales Assistant: [facility] : 1945 Requested By: Gely Kessler Order Number: [id number] MD: Drew Ayala Measurements Intervals [place] Rate: 85 P: 33 ME: 146 QRS: 36 QRSD: 82 T: 5 QT: 369 QTc: 439 Interpretive Statements Sinus rhythm Probable left atrial enlargement Borderline T wave abnormalities No previous ECG available for comparison Electronically Signed On 12-13-2019 13:20:51 CDT by Drew Ayala [email or web address] <ELECTRONICALLY SIGNED> By: Drew Ayala MD 12/13/19 1320 1121 [id number] Drew Ayala MD /EPI
--- NOTE | 2019-12-30 13:00 | NUR ---
KUB DONE LATE THIS AM PER ORDER. PATIENT PLACED IN PRONE POSITION, TOLERATED TURN WITHOUT INCIDENT. TUBE FEEDINGS REMANIN OFF. WILL CONTINUE TO MONITOR.
--- NOTE | 2019-12-30 18:45 | NUR ---
PATIENT INCONTIENT OF LARGE AMT OF THICK LIQUID BROWN STOOL, BATH AND BLACK CARE DONE AND LINENS CHANGED. FECAL MANAGEMENT SYSTEM INITIATED. FI02 TO 60%. PATIENT PLACED BACK ON BACK AT 1715. PATIENT REMAINS STABLE BUT NOT PROGRESSING HE REMAINS SEDATED AND UNRESTRAINED ON VERSED AT 4MG, PROPOFOL TAPPERED TO 28 MCG/KG/MIN AND FENTENYL AT 50 MCG/HR. SON CALLED IN AND UPDATED AT THE END OF THE SHIFT BY THIS NURSE.
[2019-12-31] VITALS (24 sets, daily range): BP systolic 131–168; BP diastolic 67–84
--- NOTE | 2019-12-31 02:53 | NUR ---
ASSESSMENTS AND MEDS GIVEN ARE CHARTED. SPOKE TO PT'S AT APPROX 2230 LAST NOC. UPDATED HER ABOUT PT STATUS, SHE STATED THAT SHE HASNT GIVEN UP AND SHE IS STILL HOLDING OUT HOPE FOR HER . REPEAT COVID-19 RESULTS CAME BACK POSITIVE AT 0025 TODAY; THIS WAS COMMUNICATED TO [facility]. PER DR CAMERON BRAVO NOT TO PRONE PT TONIGHT. SEDATION VACATION; PT REMAINS UNRESPONSIVE WITH NO REPONSE TO PAIN OR VERBAL STIMULI. PT SEDATION TITRATED DOWN. PT IS STABLE. NO SIGNS OF DISTRESS. WILL CONTINUE TO MONITOR PER POC.
[2019-12-31 05:08] LABS: HEMATOCRIT 31.6 % (42.0-52.0); HEMOGLOBIN 10.1 gm/dL (14.0-18.0); MCH 31.9 pg (26.0-34.0); MCHC 31.9 g/dL (28.0-37.0); RBC 3.16 mil/uL (4.50-6.00); RDW 15.2 % (10.5-14.5); WBC 23.6 thou/uL (4.0-11.0)
[2019-12-31 05:16] LABS: CALCIUM 8.8 mg/dL (8.5-10.1); CREATININE 0.6 mg/dL (0.7-1.3)
[2019-12-31 05:31] LABS: BE(vivo) 5.7 mmol/L (-2 to +3); HCO3 32.5 mmol/L (22.0-26.0); PCO2 59.7 mmHg (35.0-45.0); PO2 101.4 mmHg (80.0-100.0); pH 7.354 (7.360-7.450); sO2 97.2 % (92.0-98.0)
--- NOTE | 2019-12-31 19:42 | NUR ---
PT REMAINS SEDATED WITH PROPOFOL, VERSED, AND FENT GTT'S. SEDATION VACATION DONE THIS AM BUT UNABLE TOLERATE, BREATHING VERY LABORED AND SEDATION RESTARTED. VENT SETTING UNCHANGED TODAY. SPOKE WITH PT'S AND UPDATED HER TODAY. COVID TEST STILL READING + TODAY. REPORT GIVEN TO CERTIFIED MEDICAL AIDE RN.
[2020-01-01] VITALS (24 sets, daily range): BP systolic 119–166; BP diastolic 56–74
[2020-01-01 06:39] LABS: HEMATOCRIT 31.6 % (42.0-52.0); HEMOGLOBIN 9.9 gm/dL (14.0-18.0); MCH 30.9 pg (26.0-34.0); MCHC 31.4 g/dL (28.0-37.0); MCV 98.4 fL (80.0-100.0); RBC 3.21 mil/uL (4.50-6.00); RDW 15.1 % (10.5-14.5); WBC 27.2 thou/uL (4.0-11.0)
[2020-01-01 06:46] LABS: CALCIUM 8.7 mg/dL (8.5-10.1); CREATININE 0.7 mg/dL (0.7-1.3)
--- NOTE | 2020-01-01 08:40 | NUR ---
ASSESSMENTS CHARTED, MEDS CHARTED GIVEN. PATIENT RESTING IN BED, DIAPHORETIC PERIODICALLY DURING SHIFT, AFEBRILE. ON VENTILATOR, RECEIVING PROPOFOL, VERSED, FENTANYL AND D5W DURING SHIFT. TUBE FEEDING AT GOAL, Q6 ACCUCHECKS BLACK CATHETER PATENT. URINE IS ORANGE/GREEN/BROWN WITH SEDIMENT. NO LIQUID STOOL DURING SHIFT. FALL PRECAUTIONS IN PLACE.
--- NOTE | 2020-01-01 10:44 | NUR ---
ON THE VENT AND SEDATED. VITALS STABLE. ASSESSMENT DOCUMENTED. TOLERATING TUBEFEEDING PER OGT. WILL CONTINUE WITH POC.
--- NOTE | 2020-01-01 13:25 | NUR ---
CALLED AND I UPDATED HER OVER THE PHONE AND ANSWERED HER QNS.
[2020-01-02] VITALS (22 sets, daily range): BP systolic 128–192; BP diastolic 41–91
--- NOTE | 2020-01-02 03:04 | NUR ---
SEDATION VACATION AT 2110; VACATION LASTED 20 MINUTES. PT REMAINS UNRESPONSIVE, NO RESPONSE TO STERNAL RUB OR OTHER PAIN STIMULI. PT ON PROPOFOL, VERSED AND FENTANYL DRIP. DISCUSSED WITH RT AND PT FIO2 WAS WEANED DOWN TO 50%. PT TOLORATED WEANING WITH SATS AT 97%. WILL CONTINUE VENT SETTINGS WEANING ATTEMPT THROUGH THE NOC. PT REMAINS STABLE. U/O>40ML/HR. WILL CONTINUE TO CLOSELY MONITOR PER POC;
[2020-01-02 05:16] LABS: BE(vivo) 9.2 mmol/L (-2 to +3); HCO3 34.2 mmol/L (22.0-26.0); PCO2 49.6 mmHg (35.0-45.0); PO2 73.6 mmHg (80.0-100.0); pH 7.457 (7.360-7.450); sO2 95.3 % (92.0-98.0)
[2020-01-02 05:37] LABS: HEMATOCRIT 29.6 % (42.0-52.0); HEMOGLOBIN 9.5 gm/dL (14.0-18.0); MCH 31.7 pg (26.0-34.0); MCHC 32.2 g/dL (28.0-37.0); MCV 98.3 fL (80.0-100.0); RBC 3.01 mil/uL (4.50-6.00); RDW 14.4 % (10.5-14.5)
[2020-01-02 06:11] LABS: CALCIUM 9.3 mg/dL (8.5-10.1); CREATININE 0.5 mg/dL (0.7-1.3); POTASSIUM 4.2 mmol/L (3.5-5.1)
[2020-01-02 23:47] LABS: BE(vivo) 11.4 mmol/L (-2 to +3); HCO3 36.4 mmol/L (22.0-26.0); PCO2 50.5 mmHg (35.0-45.0); PO2 71.4 mmHg (80.0-100.0); pH 7.476 (7.360-7.450); sO2 95.1 % (92.0-98.0)
[2020-01-03] VITALS (33 sets, daily range): BP systolic 85–184; BP diastolic 48–82
--- NOTE | 2020-01-03 01:54 | NUR ---
2200: PT GUPPY BREATHING FROM THE BEGINNING OF THE SHIFT. THIS RN HAD WENT UP ON PT SEDATION. PROPOFOL AT 35 MCG AND FENTANYL AT 100 MCG 2300: RT CONCERN ABOUT PT WORK OF BREATHING. 2300: PER INSTRUCTIONAL RESOURCE TEACHER, PT GUPPY BREATHING, SWEATING, BREATHING USING ACCESSORY MUSCLE. PT TEMP 97.7 F, BG- 147. 2338: DR. DONATO NOTIFIED ABOUT PT SITUATION. STATE ABG AND CHEST XRAY ORDERED 0011: ABG WAS NOT MUCH CHANGED FROM THIS AM. DR DONATO ORDERED PRECEDEX IT SEEMED MORE LIKE PT SEDATION ISSUE.
[2020-01-03 03:10] LABS: URINE BILIRUBIN NEGATIVE (Negative); URINE BLOOD 3+ (Negative); URINE CLARITY CLEAR; URINE COLOR YELLOW; URINE GLUCOSE-RANDOM* NEGATIVE (Negative); URINE KETONES NEGATIVE (Negative); URINE LEUKOCYTES-REFLEX NEGATIVE (Negative); URINE NITRITE-REFLEX NEGATIVE (Negative); URINE PROTEIN (DIPSTICK) 1+ (Negative); URINE UROBILINOGEN 0.2 E.U./dl (0.2-1.0)
[2020-01-03 03:30] LABS: HCO3 34.2 mmol/L (22.0-26.0); PCO2 49.6 mmHg (35.0-45.0); PO2 81.7 mmHg (80.0-100.0); pH 7.457 (7.360-7.450); sO2 96.4 % (92.0-98.0)
[2020-01-03 03:42] LABS: BACTERIA-REFLEX None Seen /HPF (None Seen); CASTS None Seen /LPF (None Seen); CRYSTALS None Seen /LPF (None Seen); MUCUS 0-3 Light strn/LPF (None Seen); SQUAMOUS None Seen /LPF (0-3); URINE RBC 0-2 Rare /HPF (0-2); URINE WBC-REFLEX None Seen /HPF (0-5)
[2020-01-03 06:31] LABS: HEMOGLOBIN 9.6 gm/dL (14.0-18.0); MCH 32.2 pg (26.0-34.0); MCHC 32.9 g/dL (28.0-37.0); MCV 97.7 fL (80.0-100.0); RBC 2.97 mil/uL (4.50-6.00); RDW 14.7 % (10.5-14.5); WBC 24.1 thou/uL (4.0-11.0)
[2020-01-03 06:39] LABS: CALCIUM 8.9 mg/dL (8.5-10.1); CREATININE 0.5 mg/dL (0.7-1.3); POTASSIUM 3.6 mmol/L (3.5-5.1)
[2020-01-03 06:43] LABS: INR 1.8; PROTIME 18.2 Seconds (9.3-11.4)
--- NOTE | 2020-01-03 07:42 | NUR ---
PT'S SEDATION UP. TITRATING PROPOFOL, FENTANYL AND PRECEDEX. PT TOLEARTING TUBE FEED. CHART CHECK. REPORT GIVEN TO ONCOMING RN. PT SLOWLY PROGRESSING TOWARDS GOALS. CONTINUE TO MONITOR.
[2020-01-03 11:06] LABS: ALBUMIN 2.5 g/dL (3.4-5.0); DIRECT BILIRUBIN 0.3 mg/dL (<0.1-0.2); TOTAL BILIRUBIN 0.8 mg/dL (<0.1-1.0); TOTAL PROTEIN 5.7 g/dL (6.4-8.2)
[2020-01-03 11:08] LABS: APTT 21.2 Seconds (24.5-32.8); D-DIMER 2.88 ug/mLFEU (0.19-0.50); INR 1.1; PROTIME 10.8 Seconds (9.3-11.4)
--- NOTE | 2020-01-03 13:44 | NUR ---
SW reviewed chart and spoke with attending physician. Pt remains in ICU, intubated and sedated. Surgery consulted to evaluate pt for trach/peg placement. Surgeon discussed with pt's , Kelly, who is agreement with plan. Follow up COVID-19 test is pending. SW is following to assist as needed with discharge planning.
--- NOTE | 2020-01-03 15:55 | NUR ---
PT INTUBATED AND SEDATED. PROPOFOL/PRECEDEX/FENTYNL GTT. ATTEMPTING TO TITRATE OFF OF PROPOFOL. PT DOES NOT FOLLOW COMMANDS, DOES GET DIAPHORETIC, TACHYCARDIC, TACHYPNEIC, AND AGITATED WHEN SEDATION TURNED OFF. PT AND FAMILY UPDATED AND EDUCATED. PT'S WOULD LIKE TO SPEAK WITH DR DONATO; DR DONATO NOTIFIED. PLAN OF CARE IS TO TRACH/PEG AFTER COVID RESULTS.
[2020-01-04] VITALS (43 sets, daily range): BP systolic 82–186; BP diastolic 52–93
[2020-01-04 04:48] LABS: BE(vivo) 8.4 mmol/L (-2 to +3); HCO3 33.9 mmol/L (22.0-26.0); PCO2 51.9 mmHg (35.0-45.0); PO2 76.9 mmHg (80.0-100.0); pH 7.433 (7.360-7.450); sO2 95.5 % (92.0-98.0)
[2020-01-04 04:51] LABS: CALCIUM 8.2 mg/dL (8.5-10.1); CREATININE 0.5 mg/dL (0.7-1.3); POTASSIUM 3.4 mmol/L (3.5-5.1)
[2020-01-04 05:08] LABS: HEMATOCRIT 26.3 % (42.0-52.0); HEMOGLOBIN 8.7 gm/dL (14.0-18.0); MCH 32.4 pg (26.0-34.0); MCV 98.3 fL (80.0-100.0); RBC 2.68 mil/uL (4.50-6.00); RDW 14.9 % (10.5-14.5); WBC 19.9 thou/uL (4.0-11.0)
--- NOTE | 2020-01-04 08:09 | NUR ---
PATIENT PLACED ON CPAP TRIAL AROUND 0800. PATIENT TOLERATING IT WELL SO FAR. WILL CONTINUE TO MONITOR.
--- NOTE | 2020-01-04 15:27 | NUR ---
SW reviewed chart and spoke [facility] attending physician. Repeat COVID-19 screen pending. Pt is tolerating vent weaning trials. Trach/peg placement anticipated when COVID results are available. SW is following to assist as needed with discharge planning.
[2020-01-05] VITALS (47 sets, daily range): BP systolic 80–189; BP diastolic 45–95
[2020-01-05 04:42] LABS: BE(vivo) 9.6 mmol/L (-2 to +3); HCO3 34.6 mmol/L (22.0-26.0); PO2 65.7 mmHg (80.0-100.0); pH 7.458 (7.360-7.450); sO2 93.6 % (92.0-98.0)
--- NOTE | 2020-01-05 04:45 | NUR ---
0330: PT TACHYCARDIC AND HYPERTENSIVE WITH HR AT 111 AND BP SYSTOLIC AT 160'S. PT GUPPY BRREATHING. 0335: PT SEDATION UP. PROPOFOL TITRATED UP TO 45MCG. 0430: GUPPY BREATHING HAS SLOWED DOWN AND PT SINUS RHYTHM AND NORMOTENSIVE.
[2020-01-05 05:46] LABS: HEMATOCRIT 27.7 % (42.0-52.0); HEMOGLOBIN 9.1 gm/dL (14.0-18.0); MCH 32.2 pg (26.0-34.0); MCV 97.8 fL (80.0-100.0); PLATELET COUNT 333 thou/uL (150-400); RBC 2.83 mil/uL (4.50-6.00); RDW 15.4 % (10.5-14.5); WBC 20.8 thou/uL (4.0-11.0)
[2020-01-05 06:26] LABS: ALBUMIN 2.6 g/dL (3.4-5.0); CALCIUM 8.2 mg/dL (8.5-10.1); CREATININE 0.5 mg/dL (0.7-1.3); POTASSIUM 3.4 mmol/L (3.5-5.1); TOTAL BILIRUBIN 0.8 mg/dL (<0.1-1.0); TOTAL PROTEIN 6.5 g/dL (6.4-8.2)
[2020-01-05 07:25] LABS: ANISOCYTOSIS 1+; HYPOCHROMASIA 1+
--- NOTE | 2020-01-05 07:29 | NUR ---
PLAN FOR TRACH AND PEG TOMORROW. PT NOT PROGRESSING TOWARDS GOALS. CHART CHECK. REPORT GIVEN TO RICO NAVARRO.
--- NOTE | 2020-01-05 18:48 | NUR ---
ON THE VENT SEDATED, HYPERTENSIVE AND TACHYCARDIC AND STARTED ON CARVEDILOL. ASSESSMENT DOCUMENTED AND UPDATED OVER THE PHONE.
--- NOTE | 2020-01-05 19:12 | NUR ---
PATIENT BECAME HYPERTENSIVE AFTER FIRST DOSE OF ANTIHYPERTENSIVE, DR. FIORE NOTIFIED VIA [employer] AND STATED HE WOULD ADJUST THE DOSE. EVENING DOSE HELD AND ANOTHER TEXT SENT TO DR. FIORE TO ADJUST DOSE. ORDERS CAME THROUGH FOR NEW DOSE TO START IN THE MORNING.
[2020-01-06] VITALS (36 sets, daily range): BP systolic 81–170; BP diastolic 42–94
[2020-01-06 05:46] LABS: HEMATOCRIT 24.5 % (42.0-52.0); HEMOGLOBIN 8.1 gm/dL (14.0-18.0); MCH 32.5 pg (26.0-34.0); MCHC 33.1 g/dL (28.0-37.0); MCV 98.2 fL (80.0-100.0); RBC 2.5 mil/uL (4.50-6.00); RDW 15.6 % (10.5-14.5); WBC 15.8 thou/uL (4.0-11.0)
[2020-01-06 06:00] LABS: CALCIUM 8.1 mg/dL (8.5-10.1); CREATININE 0.6 mg/dL (0.7-1.3); POTASSIUM 3.1 mmol/L (3.5-5.1)
--- NOTE | 2020-01-06 07:33 | NUR ---
CARE ASSUMED AT 1900. PT SEDATED. NO VERBAL RESPONSE. OPENS EYES DURING REPOSITIONING. TUBE FEEDING MAINTAINED. PT RUNNING LOW BP. PROPOFOL INCREASED BY PATENTS EXAMINER DUE TO PT's LABORED BREATHING. RESWBBED COVID RESULTS STILL PENDING. DR. BARON NOTIFIED OF THE PENDING RESULTS. NO OTHER CONCERNS. WILL CONTINUE TO FOLLOW POC.
[2020-01-06 09:25] LABS: BE(vivo) 8.7 mmol/L (-2 to +3); HCO3 33.2 mmol/L (22.0-26.0); PCO2 46.1 mmHg (35.0-45.0); PO2 88.5 mmHg (80.0-100.0); pH 7.475 (7.360-7.450); sO2 97.2 % (92.0-98.0)
--- NOTE | 2020-01-06 10:01 | NUR ---
Nutrition: REC increase tube feeds to 45 mL/hr to better meet nutrition needs. Propofol rate has slightly decreased.
--- NOTE | 2020-01-06 14:22 | NUR ---
SW reviewed chart and spoke with attending physician. Pt has had two negative repeat COVID-19 tests. Plan for trach/peg placement when scheduled. SW spoke with pt's , Kelly, via phone to provide update and discuss plan of care. Pt's is aware of trach/peg placement and need for post-acute placement. SW discussed options for LTAC for continued vent weaning and medical mgmt. Pt's requests referral to be sent to [facility] due to location and physician continuity of care. SW notified [facility] liaison. Referral to be sent after trach/peg have been placed. Pt's requests her cell phone number ([phone]) be listed as her primary contact. SW updated pt's nurse and in [employer]. Pt's is thankful for being able to Face Time pt. Pt's phone is in his room. SW is following to assist as needed with discharge planning.
--- NOTE | 2020-01-06 19:25 | NUR ---
ASSUMED CARE AT APPROX 1730. VSS. REMAINS SEDATED ON VENT. TRACH AND PEG TUBE STABLE. ABDOMINAL BINDER INTACT. PT BECAME TACHYNPNIC AND TACHYCARDIC, PT SUCTIONED, RT NOTIFIED AND ROUNDED ON PT. PROPOFOL SEDATION INCREASED-- SEE CHARTING. PT CURRENTLY RESTING IN BED. REPORT GIVEN TO [facility] NURSE.
[2020-01-07] VITALS (41 sets, daily range): BP systolic 91–142; BP diastolic 58–83
[2020-01-07 05:22] LABS: HEMATOCRIT 27.5 % (42.0-52.0); HEMOGLOBIN 8.7 gm/dL (14.0-18.0); MCH 31.3 pg (26.0-34.0); MCHC 31.6 g/dL (28.0-37.0); MCV 99.2 fL (80.0-100.0); PLATELET COUNT 296 thou/uL (150-400); RBC 2.78 mil/uL (4.50-6.00); RDW 16.6 % (10.5-14.5); WBC 26.8 thou/uL (4.0-11.0)
[2020-01-07 05:27] LABS: BE(vivo) 5.4 mmol/L (-2 to +3); HCO3 31.4 mmol/L (22.0-26.0); PCO2 53.7 mmHg (35.0-45.0); PO2 57.3 mmHg (80.0-100.0); pH 7.385 (7.360-7.450); sO2 88.9 % (92.0-98.0)
[2020-01-07 05:43] LABS: ALBUMIN 2.1 g/dL (3.4-5.0); CALCIUM 7.5 mg/dL (8.5-10.1); CREATININE 0.9 mg/dL (0.7-1.3); TOTAL BILIRUBIN 1.9 mg/dL (<0.1-1.0); TOTAL PROTEIN 6.2 g/dL (6.4-8.2)
[2020-01-07 05:53] LABS: POTASSIUM 4.4 mmol/L (3.5-5.1)
[2020-01-07 06:05] LABS: ABSOLUTE NEUTROPHILS 24.1 thou/uL (1.4-8.2); ANISOCYTOSIS 1+; METAMYELOCYTES 1 %; MYELOCYTES 1 %
[2020-01-07 12:35] LABS: URINE BILIRUBIN NEGATIVE (Negative); URINE BLOOD 2+ (Negative); URINE CLARITY CLEAR; URINE COLOR YELLOW; URINE GLUCOSE-RANDOM* NEGATIVE (Negative); URINE KETONES NEGATIVE (Negative); URINE LEUKOCYTES NEGATIVE (Negative); URINE NITRITE NEGATIVE (Negative); URINE PROTEIN (DIPSTICK) TRACE (Negative); URINE SPECIFIC GRAVITY 1.025 (1.005-1.035)
[2020-01-07 12:44] LABS: MUCUS >6 Heavy strn/LPF (None Seen)
[2020-01-07 12:45] LABS: BACTERIA None Seen /HPF (None Seen); CASTS None Seen /LPF (None Seen); CRYSTALS None Seen /LPF (None Seen); SQUAMOUS 0-3 Few /LPF (0-3); URINE RBC 0-2 Rare /HPF (0-2); URINE WBC 0-5 Rare /HPF (0-5)
--- NOTE | 2020-01-07 15:24 | NUR ---
ASSUMED CARE OF AT 0700. PT REMAINS ON VENT SEDATED WITH PROPOFOL AND PRECEDEX. LEVO AND FENTANYL GTTS ALSO INFUSING. PT OPEN EYES, BUT DOES NOT FOLLOW COMMANDS. VSS, BLACK AND RECTAL TUBE TO DD. PT TOLERATING TUBE FEEDINGS. PT CALLED AND UPDATED ON PT CARE, ALSO ASSIST WITH VIDEO CALL. WILL CONTIUE TO MONITOR,
[2020-01-08] VITALS (24 sets, daily range): BP systolic 105–168; BP diastolic 55–90
[2020-01-08 00:39] LABS: BE(vivo) 6.3 mmol/L (-2 to +3); PCO2 45.7 mmHg (35.0-45.0); PO2 70.4 mmHg (80.0-100.0); sO2 94.7 % (92.0-98.0)
[2020-01-08 05:39] LABS: CALCIUM 8.6 mg/dL (8.5-10.1); CREATININE 0.5 mg/dL (0.7-1.3); POTASSIUM 3.5 mmol/L (3.5-5.1); TOTAL BILIRUBIN 1.2 mg/dL (<0.1-1.0); TOTAL PROTEIN 6.4 g/dL (6.4-8.2)
--- NOTE | 2020-01-08 06:37 | NUR ---
Assumed patient care at 1900. Patient remains on the ventilator and is sedated. Patient does not follow commands. Tracheostomy is draining purulent drainage. Sputum culture sent to the lab. Patient's oxygen dropped and noted to be in the 80's. Increased oxygen to 100% and notified RT. ABG was drawn and Dr. Arteaga notified of the increase and the ABG. Orders received to increase PEEP to 10. Patient also had 5 beats of V-tach during this shift. No other acute events occurred during this shift.
[2020-01-08 06:43] LABS: HEMATOCRIT 25.4 % (42.0-52.0); HEMOGLOBIN 8.1 gm/dL (14.0-18.0); MCH 31.9 pg (26.0-34.0); MCV 99.9 fL (80.0-100.0); RBC 2.55 mil/uL (4.50-6.00); WBC 21.8 thou/uL (4.0-11.0)
[2020-01-08 06:48] LABS: PLATELET COUNT 220 thou/uL (150-400)
[2020-01-08 10:02] LABS: ABSOLUTE NEUTROPHILS 20.1 thou/uL (1.4-8.2)
[2020-01-08 10:03] LABS: TARGET CELLS FEW
[2020-01-08 10:04] LABS: MACROCYTES 1+; MICROCYTES 1+
--- NOTE | 2020-01-08 15:13 | NUR ---
ASSUMED CARE AT 0700. ASSESSMENTS DOCUMENTED. PT DOES NOT FOLLOW COMMANDS, TRACK WITH EYES, OR MAKE ANY PURPOSFUL MOVEMENTES. TRACH IN PLACE WITH PURULENT DRAINAGE. FIO2 DOWN TO 90% DONE BY RT. ADEQUATE URINE OUTPUT. PT HAD 5 BEAT RUN OF VENTRICULAR-TACHYCARDIA AT 0834.
[2020-01-09] VITALS (33 sets, daily range): BP systolic 99–166; BP diastolic 57–86
--- NOTE | 2020-01-09 02:14 | NUR ---
CARE TAKEN OVER AT 0000, RECTAL TUBE INTACT, SEMI SOFT STOOL FORMED AROUND TUBE, PATIENT HAND LARGE BOWEL MOVEMENT POST REMOVAL, BATH COMPLETED. WILL CONTINUE TO MONITOR.
--- NOTE | 2020-01-09 06:38 | NUR ---
PATIENT SPONTATEOUSLY OPENS EYES, DOES NOT TRACK OR FOLLOW COMMANDS. RESPOND TO PAINFUL STIMULI. RECTAL TUBE REMOVED DUE TO INCREASED FIRMNESS OF OF STOOL. BLACK PATENT WITH GREATER THAN 30ML/HR. TOLERATING TUBE FEEDING AT GOAL RATE. NO SIGN OF ACUTE DISTRESS NOTED AT THIS TIME. WILL CONTINUE TO MONITOR.
--- NOTE | 2020-01-09 14:52 | NUR ---
KLEBSIELLA PNEUMONIAE, SOURCE TRACH. DR. ESCALANTE NOTIFIED WHILE ON UNIT AND IS AWARE.
--- NOTE | 2020-01-09 15:47 | NUR ---
SYLVIE reviewed chart and spoke with nursing and attending physician. Pt s/p trach/peg placement. SYLVIE faxed LTAC referral to [facility] for [facility]. SYLVIE confirmed info was received with [facility] liaison. SYLVIE spoke with pt's , Kelly, via phone to provide update and discuss plan for LTAC placement upon discharge. Kelly is aware and agreeable with discharge plan. SYLVIE is following to assist as needed with discharge planning.
--- NOTE | 2020-01-09 20:04 | NUR ---
PT REMAINS VENTILATED VIA TRACH. PT WAS GIVEN PRN HYDRALIZINE ORDERED X1 TODAY FOR SYSTOLIC BP GREATER THAN 160. AFTER PRN HYDRALIZINE PRESSURE HAS REMAINED <150 SYSTOLIC. PT'S CALLED AT 1825 AND RN HELD PHONE SO THAT PT'S COULD CALL PT VIA CELL PHONE WITH VIDEO CALL. CALL LASTED APPROXIMATELY 40 MINUTES. PT WENT DOWN FOR CT OF HEAD THIS EVENING. PT IS CURRENTLY AFEBRILE. REPORT GIVEN TO NIGHT RN.
[2020-01-10] VITALS (38 sets, daily range): BP systolic 101–178; BP diastolic 54–88
--- NOTE | 2020-01-10 00:17 | NUR ---
0015 - DOES NOT TOLERATED SEDATION VACATION. PT NOTED TO AWAKEN BUT HAVE NO PURPOSEFUL EYE TRACKING OR FOLLOWING OF COMMANDS. PT APPEARS TO HAVE GASPING BREATHING PATTERN, ALTHOUGH SPO2 REMAINED >90%. VENTILATOR ALARMED "HIGH AIRWAY PRESSURE" WHEN SEDATION WAS OFF. SEDATION RESUMED AND PT'S BREATHING IMPROVED AND HE BECAME RELAXED AGAIN.
--- NOTE | 2020-01-10 00:54 | NUR ---
2020 - RN SPOKE WITH PT'S SON ON THE PHONE. HE WAS UPDATED ON PT'S CONDITION AND POC. ALL QUESTIONS ANSWERED.
--- NOTE | 2020-01-10 03:50 | NUR ---
PT OPENS EYES SPONTANEOUSLY BUT HAS NO PURPOSEFUL MOVEMENT OR FOLLOWING OF COMMANDS. NO APPARENT PAIN NOTED. PT REMAINS LIGHTLY SEDATED ON PRECEDEX GTT. PT HAS BEEN SLEEPING MOST OF THE NIGHT. HIS RESPIRATIONS IMPROVE AND HE APPEARS MORE RELAXED WHILE SLEEPING. HIS GASPING BREATHING PATTERN ALSO IMPROVED WHEN HE WAS ASLEEP. VITAL SIGNS HAVE REMAINED STABLE. TF VIA PEG; TOLERATING WELL WITH NO RESIDUALS. ORAL CARE PROVIDED. REPOSITIONED TO PREVENT SKIN BREAKDOWN. AFEBRILE THIS SHIFT. NOT PROGRESSING WELL TOWARD POC GOALS. WILL CONTINUE TO MONITOR FURTHER.
[2020-01-10 12:33] LABS: FOLIC ACID 11.9 ng/mL (8.6-58.9); TSH 0.574 uIU/mL (0.358-3.740)
--- NOTE | 2020-01-10 14:35 | NUR ---
SYLVIE reviewed chart and spoke [facility] attending physician. Pt s/p trach and peg tube placement. Update provided to [facility] liaison. Neuro consulted today due to quadriplegia. 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 SYLVIE is following to assist as needed.
--- NOTE | 2020-01-10 15:30 | NUR ---
1515-PT PLACED BACK IN ENHANCED ISOLATION EARLIER. p SPEAKING Romel SEYMOUR, INFECTIOUS DISEASE RN, CALLED JAIRO JONES RE:CT SCANS ORDERED. CANCELLED FOR NOW. UPDATED VIA PHONE (SHE CALLED IN TO CHECK ON PT). VERY CONNER DISCUSSION W HER RE:PT'S CONDITION, HOW HE LOOKS. PLAN TO HAVE PRIMARY RN FACETIME PT W . STATES SHE WILL NOT MAKE THE DECISON TO STOP ANYTHING, IF THINGS START TO FAIL THEN IT'S FRANK'S WAY OF TRYING TO STOP THINGS.ACTIVE LISTENING,SUPPORT GIVEN.--VW
--- NOTE | 2020-01-10 17:51 | NUR ---
PT REMAINS ON TRACH/VENT. PRECEDEX GTT ORDERED. PT DOES NOT RESPOND TO TO ANY QUESTIONS. VSS, BLACK TO DD. PT DOES NOT APPEAR TO BE IN ANY PAIN. SPOKE/FACETIMES WITH PT WITH UP DATE ON CARE. PT IS NOT PROGRESSING TOWRADS POC AT THIS TIME.
--- NOTE | 2020-01-10 23:09 | NUR ---
1999 SPOKE WITH SON ABOUT PATIENT STATUS. 2204 RR 29-32. BREATHING AGAINGST VENT. DR DONATO HERE AND ORDERS FOR ATIVAN. SPOKE WITH ON PHONE AND UPDATE GIVEN. 2229 ASSITED WITH WITH FACE TIME TO PATIENT. PATIENTS EYES OPENED AND APPEARED TO LOOK AT PHONE. ATIVAN AND MOROPHINE IVP GIVEN FOR COMFORT AND HIGH RR. [address] DONATO THAT PATIENT APPEARS CALMER WITH RR 22 AT THIS TIME. ORDERS RECIEVED FOR PRN ATIVAN.
[2020-01-11] VITALS (49 sets, daily range): BP systolic 86–163; BP diastolic 53–91
--- NOTE | 2020-01-11 05:07 | NUR ---
RESTED QUIETLY MOST OF SHIFT. ATIVAN ORDERED AND GIVEN WITH NOTED RELIEF. NOT PROGRESSING TOWARDS DISCHARGE GOALS. DOES NOT FOLLOW DEMANDS. WILL OPEN EYES TO VERBAL STIMULI AND SOMETIMES FOLLOWS WITH EYES. VENT FIO2 INCREASED TO 100% TO MAINTAIN SATS >90%. RT HERE TO INCREASE AND SUCTION. THICK YELLOW SECRETIONS AROUND TRECH FREQUENTLY. BATH COMPLETED. WORKING ON GOALS AND PLAN OF CARE FOR NOC.
[2020-01-11 05:14] LABS: HEMATOCRIT 24.4 % (42.0-52.0); HEMOGLOBIN 7.9 gm/dL (14.0-18.0); MCH 31.7 pg (26.0-34.0); MCHC 32.4 g/dL (28.0-37.0); RBC 2.49 mil/uL (4.50-6.00); RDW 15.6 % (10.5-14.5); WBC 20.2 thou/uL (4.0-11.0)
[2020-01-11 05:25] LABS: CALCIUM 7.5 mg/dL (8.5-10.1); CREATININE 0.4 mg/dL (0.7-1.3)
[2020-01-11 05:40] LABS: POTASSIUM 2.8 mmol/L (3.5-5.1)
--- NOTE | 2020-01-11 10:07 | NUR ---
Nutrition: Hypokalemia present. Renal status stable. REC change tube feeds to Jevity 1.5 at 60 mL/hr to better meet needs and continue beneprotein powder in water flushes. Hypernatremic-REC increase water flushes to 250 mL q 6 hrs.
--- NOTE | 2020-01-11 17:10 | NUR ---
SW reviewed chart and spoke with attending physician. Code status changed to DNR earlier today. SW updated [facility] liaison. SW is following to assist as needed.
--- NOTE | 2020-01-11 18:45 | NUR ---
SPOKE WITH ON PHONE, UPDATED HER ON PT STATUS. SHE FACE TIMED WITH HIM. PT NOT PROGRESSING. RESP LABORED, COPIOUS PALE YELLOW SECRETIONS AROUND TRACH. PRECEDEX INCREASED TO 1.4 MCG/KG/MIN, ATIVAN IV GIVEN, DECREASED AMOUNT OF BED ROTATION. REMAINED ON 100% ON VENT WITH SA02 93-94%. DNR STATUS PER DR. ANG'S ORDER.
--- NOTE | 2020-01-11 21:23 | NUR ---
ASSUMED CARE FOR PT. PT UNABLE TO VOICE ANY CONCERNS. PT IS STILL ON VENT. PRECEDEX DRIP AT 1.4mcg/kg/hr. BLACK IN PLACE WITH URINE CLOUDY AND JESUSITA/YELLOW. PEG TUBE IN PLACE WITH ENTRAL FEEDING AT 60ML/HR AND 250 WATER FLUSHES Q6. PT SON CALLED TO CHECK ON HIS FATHER, HIS CONCERNS ARE WHEN WILL HIS FATHER MOVE TO THE LTAC. HOURLY ROUNDING.
[2020-01-12] VITALS (30 sets, daily range): BP systolic 92–165; BP diastolic 54–86
--- NOTE | 2020-01-12 15:49 | NUR ---
SW reviewed chart and spoke with attending physician. Pt to have lumbar puncture tomorrow and start plasmapheresis following procedure. Pt remains on the ventilator. Update provided to [facility] liaison. SYLVIE is following to assist a needed with discharge planning.
--- NOTE | 2020-01-12 16:00 | NUR ---
provided face time for Kelly Mynor, and updated her on pt condition. time involved 15 minutes.
--- NOTE | 2020-01-12 20:52 | NUR ---
SPOKE WITH AT 1900, OBTAINED CONSENT FOR SPINAL TAP, VERBALIZED UNDERSTANDING OF PROCEDURE, TWO NURSE VERIFICATION COMPLETED.
--- NOTE | 2020-01-12 21:58 | NUR ---
SPOKE WITH AND SHE FACETIMED WITH PATIENT FOR 15 MINUTES.
[2020-01-13] VITALS (24 sets, daily range): BP systolic 93–159; BP diastolic 53–88
--- NOTE | 2020-01-13 04:18 | NUR ---
PATIENT OPENS EYES WHEN NAME CALLED, DOES NOT FOLLOW COMMANDS, RESPONDS TO ORAL CARE AND PAINFUL STIMULI. PATIENT ON 80% FIO2, O2 SAT REMAINED ABOVE 90%. SPUTUM SAMPLE FROM AROUND TRACHEOSTOMY SENT TO LAB PER ORDER, VANCOMYCIN ORDERED PER DR. ESCALANTE. PEG TUBE IN PLACE, ABDOMINAL BINDER INTACT. PATIENT TOLERATING TUBE FEEDING. BLACK PATENT, GREATER THAN 30 ML/HR OUTPUT. RECTAL TUBE IN PLACE. PLAN DISCUSSED WITH DURING BEGINNING OF SHIFT. NO SIGN OF ACUTE DISTRESS NOTED AT THIS TIME. WILL CONTINUE TO MONITOR.
[2020-01-13 04:37] LABS: HEMATOCRIT 23.5 % (42.0-52.0); HEMOGLOBIN 7.5 gm/dL (14.0-18.0); MCH 31.6 pg (26.0-34.0); MCHC 31.7 g/dL (28.0-37.0); MCV 99.5 fL (80.0-100.0); RBC 2.37 mil/uL (4.50-6.00); RDW 16.2 % (10.5-14.5); WBC 19.6 thou/uL (4.0-11.0)
[2020-01-13 05:04] LABS: ALBUMIN 1.8 g/dL (3.4-5.0); CREATININE 0.5 mg/dL (0.7-1.3); MAGNESIUM 2.2 mg/dL (1.8-2.4); POTASSIUM 3.5 mmol/L (3.5-5.1); TOTAL BILIRUBIN 0.4 mg/dL (<0.1-1.0); TOTAL PROTEIN 6.3 g/dL (6.4-8.2)
[2020-01-13 12:25] LABS: CSF GLUCOSE 87 mg/dL (40-70); CSF PROTEIN 39 mg/dL (15-45)
[2020-01-13 13:20] LABS: CSF RBC 1837 /mm3
[2020-01-13 13:33] LABS: CSF EOSINOPHILS 3 %; CSF LYMPHOCYTES 12 %; CSF POLYS 78 %
[2020-01-13 13:35] LABS: CSF WBC 19 /mm3 (0-10)
--- NOTE | 2020-01-13 14:16 | NUR ---
SW reviewed chart and spoke with attending physician. Pt is s/p trach and peg placement. Pt had LP earlier today. Plan is for pt to start plasmapheresis. SW spoke with pt's via phone. Provided update and support to pt's . Pt's is hopeful that plasmapheresis will help pt and he will continue to improve. [facility] is following. SW is following to assist as needed with discharge planning.
--- NOTE | 2020-01-13 16:58 | NUR ---
LUMBAR PUNCTURE PERFORMED BY PHYSICIAN TODAY. CSF SAMPLES SENT TO LAB. RESULTS CALLED BY LAB AND PHYSICIANS NOTIFIED. ULTRASOUND COMPLETED, RESULTS GIVEN TO PHYSICIANS. PATIENT REMAINS VENTILATOR DEPENDENT WITH TRACH SECURED. LARGE AMOUNT OF BEIGE SECRETIONS AROUND TRACH PRESENT WITH NEED FOR FREQUENT DRESSING CHANGES AND SUCTIONING. CULTURE SENT TO LAB OF TRACH SECRETIONS PER ID PHYSICIAN ORDERS. PATIENT WILL OPEN EYES WHEN CALLING HIS NAME. DOES NOT MAKE EYE CONTACT, FOLLOW DIRECTIONS, OR MAKE PURPOSEFUL MOVEMENTS. PHYSICIAN SPOKE WITH PATIENT'S SPOUSE THIS MORNING VIA TELEPHONE. SPOUSE WAS CONTACTED VIA PATIENT PHONE FOR FACE TIME INTERACTION. PATIENT WAS NOT RESPONSIVE TO SPOUSE VOICE, ONLY FLUTTERED EYES WHEN NAME CALLED. BLACK AND FECAL MANAGEMENT REMAIN PATENT AND SECURED IN PLACE. NEW COLLECTION BAG WITH UROMETER WAS PROVIDED FOR CATHETER. FALL PRECAUTIONS IN PLACE.
[2020-01-13 21:07] LABS: SERUM ALBUMIN 2.7 g/dL (3.7-4.7)
--- NOTE | 2020-01-13 21:16 | NUR ---
Received a call from the pt's for an update on his condition, she is tearful and upset, and some of her questions were answered. She was reassured that everything is being done for her (she is grateful for the care he is receiving), but she states she is so frustrated that he is not showing signs of recovery. Pt is stable, he remains minimally responsive to cares, on light sedation for vent management. POC was updated, the bed is in the low/locked position, the siderails are up x 4 and oral care is provided to clear secretions. Will continue to monitor and follow POC.
[2020-01-14] VITALS (13 sets, daily range): BP systolic 48–159; BP diastolic 27–92
[2020-01-14 04:54] LABS: BE(vivo) 13.1 mmol/L (-2 to +3); HCO3 38.5 mmol/L (22.0-26.0); PCO2 55.9 mmHg (35.0-45.0); PO2 57.9 mmHg (80.0-100.0); pH 7.456 (7.360-7.450); sO2 90.7 % (92.0-98.0)
[2020-01-14 05:26] LABS: HEMATOCRIT 24.4 % (42.0-52.0); HEMOGLOBIN 7.8 gm/dL (14.0-18.0); MCH 31.9 pg (26.0-34.0); MCHC 32.1 g/dL (28.0-37.0); MCV 99.4 fL (80.0-100.0); RBC 2.45 mil/uL (4.50-6.00); RDW 16.4 % (10.5-14.5); WBC 19.8 thou/uL (4.0-11.0)
[2020-01-14 05:42] LABS: ALBUMIN 1.8 g/dL (3.4-5.0); CALCIUM 7.7 mg/dL (8.5-10.1); CREATININE 0.4 mg/dL (0.7-1.3); POTASSIUM 3.2 mmol/L (3.5-5.1); TOTAL BILIRUBIN 0.4 mg/dL (<0.1-1.0); TOTAL PROTEIN 6.5 g/dL (6.4-8.2)
[2020-01-14 05:48] LABS: PLATELET COUNT 406 thou/uL (150-400)
[2020-01-14 06:07] LABS: ABSOLUTE NEUTROPHILS 14.5 thou/uL (1.4-8.2); ANISOCYTOSIS 1+; ATYPICAL LYMPHS 1 %; NUCLEATED RBCS 1 /100WBC; TOXIC GRANULATION 2+
--- NOTE | 2020-01-14 06:29 | NUR ---
At approx 0500, pt became tachycardic, up to the 110's, respiratory rate also increased to the low 30's, his respirations were labored. Pt was repositioned, sat probes was changed to the right hand w/o any appreciable change. PRN meds were given, with minimal effect, currently heart rate is 113, BP 109/65, O2 sat is 88% with new probe to rt earlobe, but he isn't quite as labored but at 30 bpm. Will continue to monitor.
--- NOTE | 2020-01-14 10:49 | NUR ---
ASSESSMENTS AND INTERVENTIONS DOCCUMENTED. PATIENT BECOMMING HYPOTENSIVE AND O2 SATURATION NOT READING PROPERLY. RT PAGED AND RN IN ROOM. PATIENT RREMIANS HYPOTENSIVE. DR. ANG PAGED FOR LEVOPHED GTT. ORDERS RECIEVED. PATIENT STARTED OF GTT AT [place]. DR. DONATO PAGED STAT. RN FEELING FOR PULSE. NO PULSE. DR DONATO AT BEDSIDE. DR DONATO DOING AN ULTRASOUND. NO PULSE OR CARDIAC ACTIVITY NOTED. PATIENT AT 1040. DR. ANG TO CALL FAMILY AND UPDATE THEM.
[2020-01-16 11:08] LABS: CSF IgG 1.8 mg/dL (0.0-8.6)
[2020-01-16 15:08] LABS: CSF VDRL Non Reactive (Non Rea:<1:1)
== END 2020-01-14 10:40 | DRG 4 ==
LOC: ER 11:02 → 3W 16:54 → ICU 16:54 → 3W 22:00 → ICU 12-14 23:23
PROVIDERS: Hospitalist; Internal Medicine; Internal Medicine Pulmonary Disease; Nurse Practitioner; Nurse Practitioner Family; Pediatrics; Physician Assistant; Psychiatry & Neurology Neurology; Specialist; ADMIT Hospitalist
PROC: 5A1955Z Respiratory Ventilation, Greater than 96 Consecutive Hours (ICD-10-PCS; principal; 2019-12-15)
PROC: 0BH17EZ Insertion of Endotracheal Airway into Trachea, Via Natural or Artificial Opening (ICD-10-PCS; principal; 2019-12-15)
PROC: 0B113F4 Bypass Trachea to Cutaneous with Tracheostomy Device, Percutaneous Approach (ICD-10-PCS; 2020-01-06)
PROC: 009U3ZX Drainage of Spinal Canal, Percutaneous Approach, Diagnostic (ICD-10-PCS; 2020-01-13)
DX: A41.9 Sepsis, unspecified organism (principal); U07.1 COVID-19; J12.89 Other viral pneumonia; J96.01 Acute respiratory failure with hypoxia; G72.81 Critical illness myopathy; E86.0 Dehydration; R19.7 Diarrhea, unspecified; I10 Essential (primary) hypertension; E87.6 Hypokalemia; D64.9 Anemia, unspecified; I48.0 Paroxysmal atrial fibrillation; R73.9 Hyperglycemia, unspecified; Z99.3 Dependence on wheelchair; E83.51 Hypocalcemia; Z79.01 Long term (current) use of anticoagulants; Z79.899 Other long term (current) drug therapy
CPT/HCPCS: 10078; 10203; 10879; 27000; 50101; 50386; 50403; 56525; 62110; 62900